=== PATIENT | female | born 2005 | race Caucasian/White ===

== ENCOUNTER 2023-04-25 07:04 | Outpatient (CLI) | payer BC, SELFPAY ==
--- NOTE | 2023-04-25 07:15 | CRLHL7_ITS ---
For Patients: As a result of the Cures Act, medical imaging exams and procedure reports are released immediately into your electronic medical record. You may view this report before your referring provider. If you have questions, please contact your health care provider. INDICATION: First trimester scan, establish dates. COMPARISON: None. TECHNIQUE: Real-time burgos-scale imaging of the pelvis was performed. FINDINGS: Sonographic imaging demonstrates a single living intrauterine gestation. The embryo demonstrates a regular cardiac rate measuring 143 beats per minute. The embryo`s crown-rump length measurement of 0.9 cm corresponds to a gestational age of 6 weeks 6 days with a sonographic due date of 12/13/2023. There is a normal-appearing yolk sac. There are no gross abnormalities noted within the embryo at this early state of development. The gestational sac has a normal appearance. There is no evidence of a perigestational hemorrhage. The amount of fluid within the sac appears appropriate for gestational age. The cervix is closed. The myometrium appears normal. The ovaries are of normal size. Corpus luteal cyst left ovary. There are no suspicious fluid collections noted in the cul-de-sac. IMPRESSION: Normal first trimester OB ultrasound exam. Gestational age calculated at 6 weeks 6 days with a sonographic due date of 12/13/2023. Dictated by Tony Solorzano MD @ 04/25/2023 10:07:49 AM (Electronically Signed)
== END 2023-04-25 07:05 | disposition home or self-care (01) ==
LOC: US 07:05
PROVIDERS: PCP Family Medicine; Visit Provider Advanced Practice Midwife
DX: Z34.91 Encounter for supervision of normal pregnancy, unspecified, first trimester (principal); Z3A.01 Less than 8 weeks gestation of pregnancy
CPT/HCPCS: 76817; 86703; 86706; 86803; 86850; 86900; 86901; 87086; 87340

== ENCOUNTER 2023-04-25 09:11 | Outpatient (CLI) | payer BC, SELFPAY | END 2023-04-25 09:12 | disposition home or self-care (01) | PROVIDERS: PCP Family Medicine; Visit Provider Advanced Practice Midwife | DX: Z34.91 Encounter for supervision of normal pregnancy, unspecified, first trimester (principal); Z3A.01 Less than 8 weeks gestation of pregnancy | CPT/HCPCS: 86592; 86703; 86704; 86706; 86762; 86787; 86803; 86850; 86900; 86901; 87086; 87340 ==

== ENCOUNTER 2023-05-18 08:34 | Outpatient (CLI) | payer BC, SELFPAY | END 2023-05-18 08:35 | disposition home or self-care (01) | LOC: NFLDREF 08:36 | PROVIDERS: PCP Family Medicine; Visit Provider Advanced Practice Midwife | DX: Z34.91 Encounter for supervision of normal pregnancy, unspecified, first trimester (principal) | CPT/HCPCS: 87086 ==

== ENCOUNTER 2023-06-20 13:00 | Outpatient (RCR) | payer BC, SELFPAY | END 2023-10-18 23:59 | disposition home or self-care (01) | PROVIDERS: Visit Provider Family Medicine | DX: M51.27 Other intervertebral disc displacement, lumbosacral region (principal); N39.3 Stress incontinence (female) (male); M62.81 Muscle weakness (generalized); Z51.89 Encounter for other specified aftercare | CPT/HCPCS: 97110; 97140; 97162 ==

== ENCOUNTER 2023-07-25 07:08 | Outpatient (CLI) | payer BC, SELFPAY ==
--- NOTE | 2023-07-25 07:15 | CRLHL7_ITS ---
For Patients: As a result of the Century Cures Act, medical imaging exams and procedure reports are released immediately into your electronic medical record. You may view this report before your referring provider. If you have questions, please contact your health care provider. INDICATION: Evaluate anatomy. COMPARISON: 04/25/2023 TECHNIQUE: Real time burgos scale imaging of the fetus was performed as well as color Doppler analysis of the umbilical vessels. FINDINGS: Sonographic imaging demonstrates a single living intrauterine gestation. Fetus demonstrates a regular cardiac rate of 147 beats per minute. Fetus has a variable position. The placenta lies anteriorly without evidence of placenta previa. The placenta is located 5.4 cm from the internal cervical os. Amniotic fluid volume appears normal. Single deepest vertical pocket: 6.0 cm. The cervix is closed and measures 3.1 cm in length. The composite ultrasound gestational age is calculated at 21 weeks 0 days with an estimated sonographic due date of 12/05/2023. The estimated weight is 401 grams which lies at the 88th %. The following biometric measurements were obtained: Biparietal diameter: 4.9 cm/20 weeks 5 days 68th% Head circumference: 18.6 cm/21 weeks 0 days 73rd% Abdominal circumference: 16.7 cm/21 weeks 5 days 87th% Femur length: 3.3 cm/20 weeks 3 days 47th% The HC/AC ratio measures: 1.11 range (1.06-1.25) On anatomic survey, there is a normal appearance of the cerebral ventricles, cavum septi pellucidi, cisterna magna and cerebellum. The nose, lips, and facial profile appear normal. The cervical, thoracic and lumbar spine are well visualized and appear normal. There is a normal four-chamber heart view and the left and right ventricular outflow tracts appear normal. The diaphragm and stomach appear normal. The kidneys and bladder also appear normal. There is a normal three-vessel cord and cord insertion site. The four extremities appear normal. IMPRESSION: Normal OB ultrasound exam with concordance of clinical and sonographic dating. No intrinsic abnormalities noted on anatomic survey. Dictated by Tony Solorzano MD @ 07/25/2023 10:36:59 AM (Electronically Signed)
== END 2023-07-25 07:09 | disposition home or self-care (01) ==
LOC: US 07:08
PROVIDERS: PCP Family Medicine; Visit Provider Advanced Practice Midwife
DX: Z34.92 Encounter for supervision of normal pregnancy, unspecified, second trimester (principal); Z3A.21 21 weeks gestation of pregnancy
CPT/HCPCS: 76805

== ENCOUNTER 2023-08-23 09:54 | Outpatient (CLI) | payer OTHER, SELFPAY | END 2023-08-23 09:55 | disposition home or self-care (01) | LOC: NFLDREF 08-24 11:18 | PROVIDERS: PCP Family Medicine; Referring Provider Family Medicine; Visit Provider Advanced Practice Midwife | DX: Z34.02 Encounter for supervision of normal first pregnancy, second trimester (principal); Z3A.24 24 weeks gestation of pregnancy | CPT/HCPCS: 82728 ==

== ENCOUNTER 2023-09-06 12:30 | Emergency (ER) | payer OTHER, SELFPAY ==
[2023-09-06] VITALS (9 sets, daily range): BP systolic 111–116; BP diastolic 67–74; PULSE 92–113; RESP 17–20; TEMP 36.4; O2SAT 97–100; BMI 21.3
[2023-09-06 13:26] LABS: Basophils Absolute Auto 0.03 K/uL (0.00-0.30); Basophils Percent Auto 0.3 % (0.0-3.0); Eosinophils Absolute Auto 0.25 K/uL (0.00-0.50); Eosinophils Percent Auto 2.5 % (0.0-7.0); Hematocrit 33.5 % (33.0-51.0); Immature Granulocytes Abs Auto 0.06 K/uL (0.00-0.30); Immature Granulocytes Pct Auto 0.6 %; Lymphocytes Percent Auto 16.9 % (20-44); Mean Corpuscular HGB Conc 33 gm/dL (32-36); Mean Corpuscular Hemoglobin 31 pg (26-34); Mean Corpuscular Volume 94 fL (80-100); Monocytes Percent Auto 7.4 % (0.0-11.0); Neutrophils Percent Auto 72.3 % (42.0-72.0); Platelet Count* 219 K/uL (140-440); Red Blood Count 3.58 m/uL (4.00-5.20); White Blood Count* 9.93 K/uL (4.50-11.00)
[2023-09-06 13:53] LABS: Slide Review Reflex Yes
[2023-09-06 13:55] LABS: Slide Review Acceptable Review (Acceptable)
--- NOTE | 2023-09-06 13:55 | ED.GENADULT ---
HPI - General Adult General Chief complaint: Chest Pain Stated complaint: 26 weeks --chest pain, racing heartrate Time Seen by Provider: 09/06/23 12:33 History of Present Illness HPI narrative: This 18-year-old female is 26 weeks with her 1st . She comes in reporting increased heart rate. She arrives with resting heart rate at around 110-120 beats per minute. There are times she reports where her heart rate increases up to around 160 beats per minute with associated lightheadedness. She states that this normally occurs when she is in a standing position at times. She gets relief when lying down. Her has been uneventful otherwise. She is otherwise in good health and has no previous history of blood clot. She does have some mild anemia a typical in . She did go to a clinic appointment and was given iron thinking that her hemoglobin may be causing these symptoms. She did not get any relief from this. Her hemoglobin is around 10 which is not atypical in . Related Data Home Medications Medication Instructions Recorded Confirmed vits no.126-ferrous fum 2 tab PO DAILY 04/25/23 09/06/23 28 mg iron-folic acid 800 mcg tablet (Classic ) ascorbic acid (vitamin C) 500 mg 500 mg PO DAILY 07/25/23 09/06/23 capsule cholecalciferol (vitamin D3) 10 50 mcg PO QDAY 08/23/23 09/06/23 mcg (400 unit) capsule ferrous sulfate 137 mg (45 mg mg PO 08/23/23 08/23/23 iron) tablet,extended release Previous Rx's Medication Instructions Recorded folic acid 1 mg tablet 4 mg (4 x 1 mg) PO QDAY #120 tabs 04/25/23 Allergies Allergy/AdvReac Type Severity Reaction Status Date / Time No Known Drug Allergies Allergy Verified 09/06/23 12:37 Review of Systems Narrative: Constitutional: No fevers, no weight gain or loss. Eyes: No discharge. No vision changes. HENT: No congestion, no sore throat, no ear pain. Cardiovascular: No chest pain, no palpitations. Respiratory: No wheezes, no cough. Gastrointestinal: No abdominal pain, no vomiting, no diarrhea. Genitourinary: No dysuria, no hematuria. Musculoskeletal: Normal range of motion. Skin: No rashes, no pruritis. Neurological: No weakness, sensory change, speech change. Endo/Heme/Allergies: No bruising or bleeding. No polydipsia. Pysch: no suicidality, no anxiety, no insomnia. All other systems reviewed and are negative. PFSH PFSH Medical History (Updated 09/06/23 @ 15:24 by Parker Arias MD) Hx of scoliosis ?Z87.39 - Personal history of other diseases of the musculoskeletal system and connective tissue (ICD-10) Depression ?F32.A - Depression, unspecified (ICD-10) Surgical History (Updated 04/25/23 @ 08:49 by Julienne Fields CNM) [place] teeth extracted ?K08.409 - Partial loss of teeth, unspecified cause, unspecified class (ICD-10) Family History (Updated 04/25/23 @ 11:04 by Julienne Fields CNM) Mother Skin cancer (melanoma) Breast cancer Father Folic acid deficiency disease Social History (Updated 04/25/23 @ 10:38 by Julienne Fields CNM) Narrative: SOCIAL? ? Education: high school? ? 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 ? Partner: Jefferson, , works as a welder/installer? ? Lives with: Jefferson? ? Pets: 2 dogs? ? Abuse: Denies past Safe at home with current partner, partner was present when asked? ? Special Diet: Denies? ? Ok with a blood transfusion: yes? ? Culture or jain beliefs: denies? What is your current living situation?: I presently have a place to live Problems where you live: no known problems In the past 12 months, utilities in danger of being shut off: no In past 12 months, lack of transportation kept you from medical appts, meetings, work, or getting things needed for daily living: no In the past 12 mos, have been you worried that your food would run out before you had money to buy more?: never true In the past 12 mos, the food you bought just didn't last and you didn't have money to buy more?: never true Smoking Status: Never smoker Do you use any of these nicotine containing products: None Second hand tobacco smoke exposure: No How often do you have a drink containing alcohol: never AUDIT-C Alcohol total score: 0 Non-prescribed substance use: denies use How often does anyone, including family, friends and others, physically hurt you: never How often does anyone, including family, friends and others, insult or talk down to you: never How often does anyone, including family, friends and others, threaten you with harm: never How often does anyone, including family, friends and others, scream or curse at you: never Little interest or pleasure in doing things: not at all Feeling down, depressed, or hopeless: not at all Exam Narrative: Exam Narrative: Constitutional: Well-developed, well-nourished, no acute distress. HEENT: Normocephalic, atraumatic. Neck: Normal range of motion. Nontender. Supple. Heart: Regular. No murmurs. Borderline tachycardia. Intact distal pulses. Lungs: Clear to auscultation. No chest discomfort. No wheezes, rhonchi, or rales. Abdomen: Normal bowel sounds. Nontender. No rebound tenderness. Genitalia: Deferred. Back: No midline tenderness. Normal range of motion. Extremities: Normal range of motion. No injury. Skin: Intact. No rash. Warm. No erythema or pallor. Neurologic: No altered sensation. No weakness. Alert and oriented. Psychiatric: No suicidality. No anxiety or depression. No insomnia. Nursing notes and vitals signs are reviewed. Const: Vital Signs, click to edit/add: Vital Signs - 24 hr 09/06/23 12:38 09/06/23 14:23 09/06/23 14:34 Temperature 97.6 F Pulse Rate 102 H 98 Pulse Rate [Pulse Oximeter] 113 H Respiratory Rate 20 Blood Pressure Blood Pressure [Ri ght Upper Arm] 115/74 Pulse Oximetry 100 98 98 Oxygen Delivery Me thod Room Air 09/06/23 14:35 09/06/23 14:45 Temperature Pulse Rate 94 95 Pulse Rate [Pulse Oximeter] Respiratory Rate Blood Pressure 116/67 Blood Pressure [Ri ght Upper Arm] Pulse Oximetry 97 97 Oxygen Delivery Me thod Course Vital Signs Vital signs: Initial Vital Signs Temperature 97.6 F 09/06/23 12:38 Temperature Source Temporal Artery Scan 09/06/23 12:38 Pulse Rate 113 H 09/06/23 12:38 Respiratory Rate 20 09/06/23 12:38 Blood Pressure 115/74 09/06/23 12:38 Blood Pressure Mean 87 09/06/23 12:38 Blood Pressure Position Sitting 09/06/23 12:38 Pulse Oximetry 100 09/06/23 12:38 Oxygen Delivery Method Room Air 09/06/23 12:38 Vital Signs Temperature 97.6 F 09/06/23 12:38 Pulse Rate 113 H 09/06/23 12:38 Respiratory Rate 20 09/06/23 12:38 Blood Pressure 115/74 09/06/23 12:38 Pulse Oximetry 100 09/06/23 12:38 Oxygen Delivery Method Room Air 09/06/23 12:38 Temperature 97.6 F 09/06/23 12:38 Pulse Rate 95 09/06/23 14:45 Respiratory Rate 20 09/06/23 12:38 Blood Pressure 116/67 09/06/23 14:35 Pulse Oximetry 97 09/06/23 14:45 Oxygen Delivery Method Room Air 09/06/23 12:38 Medical Decision Making MDM Narrative Medical decision making narrative: This patient comes in with concern about episodes of increased heart rate. She states that she noticed an episode when in a standing position when her heart rate went up toward 160 beats per minute. She arrives here with heart rate around 110 but this decreased into the 90s when relaxing here. She does not report any leg pain and has no prior history of blood clots. She states that she has been having increased heart rate over the past many weeks during this . She has had a mild anemia and did receive iron therapy. Today her hemoglobin returns at 11.0. A D-dimer is obtained which can be altered in its results during the course of . Hers returns at 0.57 which is in normal range for 2nd trimester . Up-to-date states D-dimer can range between 0.2 and 1.6 at this time in . I did use bedside ultrasound to evaluate her and saw normal heart beat and general activity of the baby. Other organs are visualized including kidneys, liver, gallbladder, aorta, and inferior vena cava. I also evaluated her heart and saw normal heart rate and rhythm without evidence of any right heart enlargement, fluid around the heart, or valvular dysfunction. It seems that this patient has episodes of tachycardia are not related to a deep venous thrombus or pulmonary embolism. It does seem to be more related to position and with her increasing sizes there could be some episodes of compression of blood flow returned back to her heart causing these reactions. This patient is okay to be discharged home. Lab Data Labs: Lab Results 09/06/23 Range/Units 13:18 WBC 9.93 (4.50-11.00) K/uL RBC 3.58 L (4.00-5.20) m/uL Hgb 11.0 L (12.0-16.0) gm/dL Hct 33.5 (33.0-51.0) % MCV 94 (80-100) fL MCH 31 (26-34) pg MCHC 33 (32-36) gm/dL RDW Coeff of [place] 13.0 (11.5-15.5) % Plt Count 219 (140-440) K/uL Neut % (Auto) 72.3 H (42.0-72.0) % Lymph % (Auto) 16.9 L (20-44) % [place] % (Auto) 7.4 (0.0-11.0) % Eos % (Auto) 2.5 (0.0-7.0) % Baso % (Auto) 0.3 (0.0-3.0) % Neut # (Auto) 7.20 H (1.7-7.0) K/uL Lymph # (Auto) 1.70 (0.90-2.90) K/uL [place] # (Auto) 0.70 (0.00-0.90) K/UL Eos # (Auto) 0.25 (0.00-0.50) K/uL Baso # (Auto) 0.03 (0.00-0.30) K/uL Abs Immat Gran (auto) 0.06 (0.00-0.30) K/uL Imm/Tot Granulo (auto) 0.6 % Diff Slide Review Acceptable Review (Acceptable) D-Dimer Quant (PE/DVT) 0.57 H (0.00-0.50) ug/ml ECG Data Interpretation: Normal sinus rhythm. Rate is 100 beats per minute. There are no ST or T-wave abnormalities. Discharge Plan Discharge Clinical Impression: , Tachycardia, paroxysmal Patient Disposition: Home, Self-Care Condition: Stable Additional Instructions: Continue current plans. Follow up with MD return if worsening. Prescriptions: No Action ascorbic acid (vitamin C) 500 mg capsule 500 mg PO DAILY cholecalciferol (vitamin D3) 10 mcg (400 unit) capsule 50 mcg PO QDAY Classic 28 mg iron- 800 mcg tablet 2 tab PO DAILY folic acid 1 mg tablet 4 mg PO QDAY Qty: 120 12RF ferrous sulfate 137 mg (45 mg iron) tablet extended release PO Hold Instructions: during IV iron infusions Follow Up/Referrals: Alcira Arreola MD [Primary Care Provider] - Stand Alone Forms: [facility] Info Instructions Procedures Ultrasound Cardiac exam #1: Anatomical areas examined: parasternal long Indications: dyspnea Exam type: limited transthoracic echocardiogram Impression: negative exam
[2023-09-06 15:48] LABS: D Dimer Quantitative* 0.57 ug/ml (0.00-0.50)
== END 2023-09-06 15:34 | disposition home or self-care (01) ==
PROVIDERS: Emergency Provider Emergency Medicine Emergency Medical Services; PCP Family Medicine
DX: O99.412 Diseases of the circulatory system complicating pregnancy, second trimester (principal); I47.9 Paroxysmal tachycardia, unspecified; Z3A.26 26 weeks gestation of pregnancy
CPT/HCPCS: 36415; 76604; 76705; 85025; 85379; 93005; 93308; 99284; 99285

== ENCOUNTER 2023-09-07 11:08 | Outpatient (CLI) | payer OTHER, SELFPAY | END 2023-09-07 11:09 | disposition home or self-care (01) | LOC: NFLDREF 11:21 | PROVIDERS: PCP Family Medicine; Visit Provider Advanced Practice Midwife | DX: Z34.92 Encounter for supervision of normal pregnancy, unspecified, second trimester (principal); Z3A.26 26 weeks gestation of pregnancy | CPT/HCPCS: 80053 ==

== ENCOUNTER 2023-09-07 13:00 | Outpatient (RCR) | payer OTHER, SELFPAY ==
[2023-08-29 09:09] VITALS: BP 121/75; PULSE 104; RESP 16; TEMP 36.3
[2023-08-29] MEDS: 0.9 % SODIUM CHLORIDE 250 ml IV (09:15)
[2023-08-29] MEDS: SODIUM CHLORIDE 0.9 % (FLUSH) 10 ML SYRINGE IVF (09:15)
[2023-08-29] MEDS: IRON SUCROSE COMPLEX 200 MG in 0.9 % SODIUM CHLORIDE 100 ml 440 MG IVPB (09:26)
[2023-08-29 09:47] VITALS: BP 107/79; PULSE 94
[2023-08-29 10:15] VITALS: BP 109/67; PULSE 97; RESP 16; TEMP 35.9; O2SAT 98
--- NOTE | 2023-08-29 11:26 | URNOTE ---
Per UMR, prior authorization is not required for Iron sucrose ([id number]).
[2023-08-31 10:06] VITALS: BP 130/71; PULSE 105; RESP 16; TEMP 36.3; O2SAT 99
[2023-08-31] MEDS: SODIUM CHLORIDE 0.9 % (FLUSH) 10 ML SYRINGE IVF (10:23)
[2023-08-31] MEDS: IRON SUCROSE COMPLEX 200 MG in 0.9 % SODIUM CHLORIDE 100 ml 440 MG IVPB (10:23)
[2023-08-31] MEDS: 0.9 % SODIUM CHLORIDE 250 ml IV (10:23)
--- NOTE | 2023-08-31 10:29 | PC.NURSE ---
Pt present at [facility] for 2nd Venofer infusion. Celine reports that after last treatment (1st infusion) she experienced dizziness, hot flashes and heart racing (130 bpm per pt's manual assessment) a few hours after the completion of the infusion. The next day she had a headache and joint pain all day. RN advised pt to contact her OB provider with this update.
[2023-08-31 10:44] VITALS: BP 110/69; PULSE 91; RESP 16; TEMP 36.9; O2SAT 98
[2023-08-31 11:18] VITALS: BP 117/73; PULSE 88; RESP 16; TEMP 37.2; O2SAT 98
[2023-09-03 14:03] VITALS: BP 129/81; PULSE 107; RESP 16; TEMP 36; O2SAT 100
[2023-09-03] MEDS: IRON SUCROSE COMPLEX 200 MG in 0.9 % SODIUM CHLORIDE 100 ml 440 MG IVPB (14:28)
[2023-09-03 14:50] VITALS: BP 103/55; PULSE 98; RESP 16; TEMP 36.3; O2SAT 98
[2023-09-03 15:20] VITALS: BP 110/71; PULSE 100; RESP 16; TEMP 36.7; O2SAT 99
[2023-09-05 08:30] VITALS: BP 108/62; PULSE 110; RESP 16; TEMP 35.8; O2SAT 99
[2023-09-05] MEDS: SODIUM CHLORIDE 0.9 % (FLUSH) 10 ML SYRINGE IVF (08:51)
[2023-09-05] MEDS: IRON SUCROSE COMPLEX 200 MG in 0.9 % SODIUM CHLORIDE 100 ml 440 MG IVPB (08:51)
[2023-09-05] MEDS: 0.9 % SODIUM CHLORIDE 250 ml IV (08:51)
[2023-09-05 09:33] VITALS: BP 114/70; PULSE 110; RESP 16; TEMP 36.6; O2SAT 99
[2023-09-07 12:58] VITALS: BP 120/76; PULSE 106; RESP 18; O2SAT 98
[2023-09-07] MEDS: IRON SUCROSE COMPLEX 200 MG in 0.9 % SODIUM CHLORIDE 100 ml 440 MG IVPB (13:11)
[2023-09-07 13:28] VITALS: BP 103/69; PULSE 106; RESP 16; O2SAT 98
[2023-09-07] MEDS: SODIUM CHLORIDE 0.9 % (FLUSH) 10 ML SYRINGE IVF (13:28)
[2023-09-07] MEDS: 0.9 % SODIUM CHLORIDE 250 ml IV (13:28)
[2023-09-07 14:01] VITALS: BP 106/72; PULSE 110; RESP 18; O2SAT 98
== END 2024-02-25 23:59 | disposition home or self-care (01) ==
LOC: CCIC 13:00
PROVIDERS: PCP Family Medicine; Referring Provider Family Medicine; Visit Provider Advanced Practice Midwife
DX: D50.9 Iron deficiency anemia, unspecified (principal)
CPT/HCPCS: 96365; 96374; 96376; J1756; J7050

== ENCOUNTER 2023-09-19 12:47 | Outpatient (CLI) | payer OTHER, SELFPAY | END 2023-09-19 12:48 | disposition home or self-care (01) | LOC: RAD 12:48 | PROVIDERS: PCP Family Medicine; Visit Provider Internal Medicine | DX: I47.9 Paroxysmal tachycardia, unspecified (principal) | CPT/HCPCS: 93306 ==

== ENCOUNTER 2023-09-20 09:29 | Outpatient (CLI) | payer OTHER, SELFPAY | END 2023-09-20 09:30 | disposition home or self-care (01) | LOC: NFLDREF 10-02 19:58 | PROVIDERS: PCP Family Medicine; Referring Provider Family Medicine; Visit Provider Advanced Practice Midwife | DX: R74.8 Abnormal levels of other serum enzymes (principal); Z11.3 Encounter for screening for infections with a predominantly sexual mode of transmission | CPT/HCPCS: 84450; 84460; 86592 ==

== ENCOUNTER 2023-11-13 18:09 | Outpatient (CLI) | payer OTHER, SELFPAY ==
[2023-11-13 18:17] VITALS: PULSE 105; O2SAT 100
[2023-11-13 18:18] VITALS: BP 129/75; PULSE 100; RESP 16; TEMP 36.7
--- NOTE | 2023-11-13 19:07 | PC.OBNST ---
The provider's electronic signature indicates the NST is reactive/appropriate for gestational age. *Note to provider: If an addendum is required, open the patient's chart and click on the note under the Nurse/Allied Health tab.
== END 2023-11-13 18:48 | disposition home or self-care (01) ==
LOC: OB OUT 18:09 → OB 18:10
PROVIDERS: PCP Family Medicine; Visit Provider Advanced Practice Midwife
DX: O36.8130 Decreased fetal movements, third trimester, not applicable or unspecified (principal); Z3A.36 36 weeks gestation of pregnancy
CPT/HCPCS: 59025; G0463

== ENCOUNTER 2023-11-15 11:00 | Outpatient (CLI) | payer OTHER, SELFPAY | END 2023-11-15 11:01 | disposition home or self-care (01) | LOC: NFLDREF 11-19 07:50 | PROVIDERS: PCP Family Medicine; Referring Provider Family Medicine; Visit Provider Advanced Practice Midwife | DX: Z34.03 Encounter for supervision of normal first pregnancy, third trimester (principal) | CPT/HCPCS: 87081; 87653 ==

== ENCOUNTER 2023-11-22 10:26 | Outpatient (CLI) | payer OTHER, SELFPAY ==
--- NOTE | 2023-11-22 10:30 | US_ITS ---
Patient: GABRIEL ESCAMILLA Facility:?[facility] Patient ID:?[id number] Site Patient ID:?[id number]. Site :?[id number] Study:?US-OB Pelvis BPP-11/22/2023 10:59:14 AM Ordering Physician:DEEPALI REY Final Report: INDICATION: Decreased movement TECHNIQUE: Limited transabdominal two-dimensional burgos-scale ultrasound examination. COMPARISON: None FINDINGS: There is a living fetus in cephalic lie with gestational age of 37 weeks 3 days and EDC of 12/10/2023. The biophysical profile score is 8/8. The heart rate is measured at 147 beats per minute and the rhythm appears regular. The amniotic fluid volume is within normal limits with single deepest pocket of 4.6 cm. The placenta is anterior and superior to the cervical os. There is no evidence of previa. IMPRESSION: 1. Living fetus in cephalic lie with gestational age of 37 weeks 3 days and EDC of 12/10/2023. 2. Biophysical profile score is 8/8. Dictated by Herbert Piedra MD @ 11/23/2023 9:50:42 AM Signed by:?Herbert Piedra MD @11/23/2023 9:50:42 AM (Electronic Signature)
== END 2023-11-22 10:27 | disposition home or self-care (01) ==
LOC: US 10:26
PROVIDERS: PCP Family Medicine; Visit Provider Advanced Practice Midwife
DX: O36.8130 Decreased fetal movements, third trimester, not applicable or unspecified (principal); Z3A.37 37 weeks gestation of pregnancy
CPT/HCPCS: 76819

== ENCOUNTER 2023-11-22 11:01 | Outpatient (CLI) | payer OTHER, SELFPAY | END 2023-11-22 11:02 | disposition home or self-care (01) | PROVIDERS: PCP Family Medicine; Visit Provider Advanced Practice Midwife | DX: O99.713 Diseases of the skin and subcutaneous tissue complicating pregnancy, third trimester (principal); L29.9 Pruritus, unspecified | CPT/HCPCS: 82239; 84450; 84460 ==

== ENCOUNTER 2023-12-01 16:34 | Outpatient (CLI) | payer OTHER, SELFPAY ==
[2023-12-01 16:57] VITALS: BP 132/73; PULSE 100; TEMP 36.6
[2023-12-01 17:21] LABS: Appearance Urine Clear (Clear); Bilirubin Urine Negative (Negative); Blood Urine Negative (Negative); Color Urine Light yellow (Yellow); Glucose Urine Negative (Negative); Ketones Urine Negative (Negative); Leukocyte Esterase Urine Negative (Negative); Nitrite Urine Negative (Negative); Protein Urine Negative (Negative); Specific Gravity Urine 1.015 (1.000-1.030); Urobilinogen Urine 0.2 (0.2-1.0); pH Urine 7.5 (5.0-8.5)
--- NOTE | 2023-12-02 21:43 | PC.OBNST ---
NST Note NST Note Start: 12/01/23 16:45 Freq: ONCE Status: Discharge Protocol: Document 12/01/23 19:28 ABP (Rec: 12/01/23 19:30 ABP [id number]) NST Note 1 Para (# of births) 0 EDC 12/10/23 Gestational Age In Weeks & Days 38 Weeks & 5 Days Patient Presented with Complaint(s) of Contractions/cramping Reactive Yes LUCIANO Bal RN Date 12/01/23 Reactive Yes LUCIANO Macias RN OB NST charge Yes Complete NST Note via Write Note Yes The provider's electronic signature indicates the NST is reactive/appropriate for gestational age. *Note to provider: If an addendum is required, open the patient's chart and click on the note under the Nurse/Allied Health tab.
== END 2023-12-01 19:35 | disposition home or self-care (01) ==
LOC: OB OUT 16:35 → OB 16:36
PROVIDERS: PCP Family Medicine; Visit Provider Advanced Practice Midwife
DX: O47.1 False labor at or after 37 completed weeks of gestation (principal); Z3A.38 38 weeks gestation of pregnancy
CPT/HCPCS: 59025; 81003; G0463

== ENCOUNTER 2023-12-11 12:12 | Inpatient (IN) | payer OTHER, SELFPAY ==
[2023-12-11] VITALS (17 sets, daily range): BP systolic 104–135; BP diastolic 56–79; PULSE 82–141; RESP 16; TEMP 36.6–37.1; O2SAT 98–100; BMI 25.4
[2023-12-11 11:35] LABS: Hematocrit 37.2 % (33.0-51.0); Hemoglobin* 12.6 gm/dL (12.0-16.0); Mean Corpuscular HGB Conc 34 gm/dL (32-36); Mean Corpuscular Hemoglobin 31 pg (26-34); Mean Corpuscular Volume 92 fL (80-100); Platelet Count* 188 K/uL (140-440); Red Blood Count 4.04 m/uL (4.00-5.20)
[2023-12-11 11:43] LABS: Slide Review Reflex No
[2023-12-11 11:55] LABS: Alanine Aminotransferase* 13 U/L (4-35); Aspartate Amino Transferase* 24 U/L (12-35); Blood Urea Nitrogen* 4 mg/dL (5-24); Creatinine* 0.4 mg/dL (0.5-1.5); Estimated Glomerular Filt Rate 145 ml/min
[2023-12-11 11:55] LABS: Total Protein Urine 13 mg/dL
[2023-12-11 11:56] LABS: Creatinine Urine 12.6 mg/dL
--- NOTE | 2023-12-11 12:10 | P.LDBA_ITS ---
Subjective History of Present Illness Date Seen: 12/11/23 Narrative: Patient is being admitted to Labor and Delivery for induction of labor for preeclampsia without severe features. She is a 18 year old at 40.1 weeks gestation. Her full history and physical was dictated by Cuate Fields CNM on 11/22/23. Please see this for details. She was seen in the clinic today for a routine OB visit, and had elevated blood pressures there. She was sent to triage for further monitoring and lab work. Her blood pressures are now within normal limits running 120's/80's. Labs are WNL with the exception of her TP creatinine ratio which is 1.00 today. Recommendation with the diagnosis of preeclampsia at 40.1 weeks is induction of labor. Specific Issues/Plans [place] H&P done by Cuate Fields CNM on 11/22/23 1. Father of pt has MTHFR genetic mutation -folic acid 4mg RX sent 2. Hx anemia -recommended iron supplement QOD Hgb 10.5 at 24 weeks with symptoms IV iron infusions ordered 3. depression and anxiety -previously took medication, off for the last 2 years. 4. Hx of scoliosis, incidental herniated disc noted on MRI L5-S1 disk extrusion with 3 mm migration (per [facility] records) Starting PT end of April/early May -Consider anesthesia referral: completed, no concerns 5. Paroxysmal Tachycardia with SOB Normal Troponin & CBC, elevated AST (39) ALT (40) Follow-up AST and ALT in 1 week- all normal Holter monitor Cardiology Consult: occasional benign sinus tach, can consider labetalol is symptomatic/bothersome 6. Itching on abdomen at 37 wks- labs normal 40 wks return of itching- repeat labs 7. Elevated BP in clinic 40 weeks COVID: fully vaccinated, boosted x1 Flu: 05/22/2023 TDAP: 10/26/2023 32wk Mental Health: 34wk Hgb: Comments: ? OB - Problem Based A/P Additional Plan (1) Preeclampsia: Status: Acute (2) 40 weeks gestation of : Status: Acute (3) Encounter for induction of labor: Status: Acute Plan Assessment:?? at 40.1 weeks gestation?? GBS negative?? Labor type: Induced, Early labor? Category 1 FHR pattern. Morton score 6. complicated by: 1. Father of pt has MTHFR genetic mutation -folic acid 4mg RX sent 2. Hx anemia -recommended iron supplement QOD Hgb 10.5 at 24 weeks with symptoms IV iron infusions ordered 3. depression and anxiety -previously took medication, off for the last 2 years. 4. Hx of scoliosis, incidental herniated disc noted on MRI L5-S1 disk extrusion with 3 mm migration (per [facility] records) -Consider anesthesia referral: completed, no concerns 5. Paroxysmal Tachycardia with SOB Normal Troponin & CBC, elevated AST (39) ALT (40) Follow-up AST and ALT in 1 week- all normal Holter monitor Cardiology Consult: occasional benign sinus tach, can consider labetalol is symptomatic/bothersome 6. Itching on abdomen at 37 wks- labs normal 40 wks return of itching- repeat labs ordered 12/11/23 7. Preeclampsia without severe features Plan:?? * ?Admit to L & D? * IV access: SL for induction * Monitoring per policy: continuous ? * Candidate for analgesia of choice.? Planning unmedicated waterbirth for pain management * Desires waterbirth.? Consent signed and Hep C negative * Reviewed risks and benefits of IOL with Cook balloon, pitocin vs cytotec/cervadil. Pt prefers cytotec. Pitocin to follow if needed. * Monitor blood pressures. Repeat labs if worsening symptoms or more elevated BP's ? * Patient encouraged to reposition and ambulate to promote physiologic labor and . * Anticipate ? Delivery/Labor/Induction Plan Plan: induction Induction method: per misoprostol protocol OB Exam Physical Exam Vital signs: Temp Pulse BP Pulse Ox 98 F 96 121/66 99 12/11/23 11:15 12/11/23 11:46 12/11/23 11:46 12/11/23 11:16 Narrative: Vitals Reviewed Constitutional:? Alert and oriented x3 HEENT:? Normocephalic, atraumatic Neck:? Supple Lungs:? Clear to auscultation bilaterally Heart:? Regular rate and rhythm, no murmur, rub or gallop Abdomen:? Soft, nontender, and gravid. Vertex by Js's, confirmed with cervical exam. Extremities:? No edema or erythema Cervix: 1.5 cm/50%/0 station/vertex NST: 135 bpm/moderate variability/+accelerations/-decelerations/rare contractions Detailed Labor and Delivery Exam Patient Gravid: Yes
[2023-12-11] MEDS: miSOPROStoL 25 MCG/0.25 TABLET VAGINAL (12:46)
--- NOTE | 2023-12-11 16:12 | PM.OBPNL ---
Subjective Date Seen: 12/11/23 Narrative: ?Celine is coping well with labor pain/contractions. ?Her is with her for support. She denies strong contractions at this time, reports only slight increase in cramping since receiving Cytotec. ?She would like to continue with repositioning and relaxation for comfort and pain management.? Objective Exam: VSS, afebrile General Appearance:? Calm, cooperative. ?No acute distress. ? Psychiatric Exam: Alert and oriented, appropriate affect Abdomen: Gravid Ctx: ?Q 1-4 min apart. ?Mild ? ? FHTs: ?Baseline: 140. ? ? Variability: moderate. ?Accels: +. ? ?Decels: ?-. SVE: deferred at this time Membranes: Intact ? Vital Signs: Last Vital Signs Temp 98.7 F 12/11/23 13:38 Pulse 91 12/11/23 13:38 BP 132/73 12/11/23 13:38 Pulse Ox 99 12/11/23 13:37 Plan Plan: Assessment:?? at 40.1 gestation?? GBS negative Patient is coping well with challenges of labor.?? Labor type: Induced, Early labor? Category 1 FHR pattern.? complicated by: . Father of pt has MTHFR genetic mutation, Anemia with IV iron infusion in , Hx depression and anxiety not currently medicated, Hx of scoliosis, incidental herniated disc noted on MRI L5-S1 disk extrusion with 3 mm migration (per [facility] records) anesthesia referral: completed, no concerns Paroxysmal Tachycardia with SOB Normal Troponin & CBC, elevated AST (39) ALT (40) Follow-up AST and ALT in 1 week- all normal Holter monitor Cardiology Consult: occasional benign sinus tach, can consider labetalol is symptomatic/bothersome Itching on abdomen at 37 wks- labs normal 40 wks return of itching- repeat labs ordered 12/11/23 Labor complicated by: Proteinuria and elevated BP without the diagnosis of hypertension Plan:?? Induction ongoing for concerns of preeclampsia with new onset proteinuria and elevated BP in nonsevere ranges. Cytotec per protocol. Continue with routine intrapartum cares as ordered.?? Patient encouraged to move and change positions to promote physiologic labor and .?? Nonpharmacologic comfort measures per patient preference. Candidate for analgesia of choice if desired. Patient planning waterbirth Anticipate progress to NVD. ?
--- NOTE | 2023-12-11 18:07 | P.OBPN_ITS ---
Subjective Date Seen: 12/11/23 Narrative: ?Celine is coping well with labor pain/contractions. ?Her is with her for support. ?She would like to continue with repositioning and relaxation for comfort and pain management.?I was asked to evaluate her as she is more uncomfortable and katarina regularly. She is due for another dose of Cytotec now. Objective Exam: VSS, afebrile General Appearance:? Calm, cooperative. ?No acute distress. ? Psychiatric Exam: Alert and oriented, appropriate affect Abdomen: Gravid Ctx: ?Q 1-2 min apart. ? ? ?Moderate FHTs: ?Baseline: 135. ? ? Variability: moderate. ?Accels: +. ? ?Decels: ?-. SVE: /0 vertex Membranes: Intact ? Vital Signs: Last Vital Signs Temp 98.7 F 12/11/23 13:38 Pulse 85 12/11/23 17:33 BP 135/69 12/11/23 17:33 Pulse Ox 100 12/11/23 17:33 Plan Plan: Assessment:?? at 40.1 gestation?? GBS negative Patient is coping well with challenges of labor.?? Labor type: Induced, Early labor? Category 1 FHR pattern.? complicated by: . Father of pt has MTHFR genetic mutation, Anemia with IV iron infusion in , Hx depression and anxiety not currently medicated, Hx of scoliosis, incidental herniated disc noted on MRI L5-S1 disk extrusion with 3 mm migration (per [place] records) anesthesia referral: completed, no concerns Paroxysmal Tachycardia with SOB Normal Troponin & CBC, elevated AST (39) ALT (40) Follow-up AST and ALT in 1 week- all normal Holter monitor Cardiology Consult: occasional benign sinus tach, can consider labetalol is symptomatic/bothersome Itching on abdomen at 37 wks- labs normal 40 wks return of itching- repeat labs ordered 12/11/23 Labor complicated by: Proteinuria and elevated BP without the diagnosis of hypertension Plan:?? Induction ongoing for concerns of preeclampsia with new onset proteinuria and elevated BP in nonsevere ranges. Hold Cytotec at this time, consider addition of IV Pitocin if contractions space out. Continue with routine intrapartum cares as ordered.?? Patient encouraged to move and change positions to promote physiologic labor and .?? Nonpharmacologic comfort measures per patient preference. Candidate for analgesia of choice if desired. Patient planning waterbirth Anticipate progress to NVD. ?
--- NOTE | 2023-12-11 20:26 | P.OBPN_ITS ---
Subjective Date Seen: 12/11/23 Narrative: Celine is a 18 yo G1 at 40 1/7 weeks gestation admitted earlier today for protienuria with elevated BP not yet meeting criteria for hypertension disorder. She had an induction of labor started around 1 pm with cytotec. Since then she has been katarina about every 1-3 minutes. Further doses of cytotec were held. Patient reports feeling they are getting more intense but overall coping well. At this time, BP has been stable. Objective Exam: Objective: Constitutional: Alert and oriented x3, mild/moderate distress, coping well Vital signs stable, see nurse documentation Abdomen: gravid, contractions palpate mild/moderate with contractions and soft between Cervix: 3 cm/70%/0 station/vertex per previous exam at 1800 NST: 135 bpm/moderate variability/15x15 accelerations/no decelerations/cont ractions every 1-3 minutes Vital Signs: Last Vital Signs Temp 98.8 F 12/11/23 20:18 Pulse 113 H 12/11/23 20:14 Resp 16 12/11/23 20:18 BP 129/72 12/11/23 20:14 Pulse Ox 98 12/11/23 20:15 Contractions Monitor mode: External Contraction pattern: Regular Contraction intensity: Mild Assessment Assessment: induction ongoing and early labor Status: Category l Plan Plan: ASSESSMENT:? 18 at 40 1/7 weeks gestation? Labor type: induction, early labor? Category 1 FHR pattern.?? Labor complicated by: elevated p/c ratio with elevated BP not yet meeting criteria for HTN. ? GBS negative? ? PLAN:? Induction ongoing for concerns of preeclampsia with new onset proteinuria with one mild range blood pressure. Will continue to monitor BP. Hold Cytotec at this time, consider addition of IV Pitocin if contractions space out. Continue with routine intrapartum cares as ordered. Intermittent monitoring okay at this time to allow patient to move, portable monitor was not working and patient has not yet met criteria for Pre-e. If she has an additional elevated BP, she will need to have continuous BP monitoring. Patient encouraged to move and change positions to promote physiologic labor and .?? Nonpharmacologic comfort measures per patient preference. Candidate for analgesia of choice if desired. Patient planning waterbirth Anticipate progress to NVD
[2023-12-12] VITALS (80 sets, daily range): BP systolic 102–146; BP diastolic 51–89; PULSE 8–165; RESP 16–22; TEMP 35.9–37.1; O2SAT 82–100
[2023-12-12] MEDS: LACTATED RINGERS 1000 ML 1,000 ML 125 ML IV ×3 (00:47→15:32)
[2023-12-12] MEDS: OXYTOCIN 30 unit/500 ML in NS 30 UNIT/500 ML BAG IVPB (00:49)
--- NOTE | 2023-12-12 06:32 | PM.OBPNL ---
Subjective Date Seen: 12/12/23 Narrative: Celine is a G1 at 40 2/7 here for IOL for proteinuria with elevated BP x 1. She has not yet had another BP. She has been able to rest some overnight and coping well with labor pain. She reports that she is still having them but does not feel they are any more intense with pitocin. Objective Exam: Objective: Constitutional: Alert and oriented x3, mild/moderate distress, coping well Vital signs stable, see nurse documentation Abdomen: gravid, contractions palpate moderate with contractions and soft between Cervix: 4 cm/70%/0 station/vertex NST: 135 bpm/moderate variability/15x15 accelerations/no decelerations/contractions every 2-3 minutes Vital Signs: Last Vital Signs Temp 97.8 F 12/12/23 05:42 Pulse 82 12/12/23 05:53 Resp 16 12/12/23 05:42 BP 104/58 L 12/12/23 05:53 Pulse Ox 82 L 12/12/23 05:46 Contractions Monitor mode: External Contraction pattern: Regular Contraction intensity: Moderate Pitocin Rate (mU/min): 4 Assessment Assessment: induction ongoing and early labor Amniotic Membrane Status: AROM Status: Category l Plan Plan: ASSESSMENT:? 18 at 40 1/7 weeks gestation? Labor type: induction, early labor? Category 1 FHR pattern.?? Labor complicated by: elevated p/c ratio with elevated BP not yet meeting criteria for HTN. ? GBS negative? ? PLAN:? Induction ongoing for concerns of preeclampsia with new onset proteinuria with one mild range blood pressure. Will continue to monitor BP. IV pitocin started at 0030. Continue to titrate. Continue with routine intrapartum cares as ordered. Continuous EFM. Patient encouraged to move and change positions to promote physiologic labor and .?? Nonpharmacologic comfort measures per patient preference. Candidate for analgesia of choice if desired. Patient planning waterbirth Anticipate progress to NVD
--- NOTE | 2023-12-12 08:17 | P.OBPN_ITS ---
Subjective Time Seen by Provider: 08:15 Date Seen: 12/12/23 Narrative: Celine is currently on 5 of Pitocin and katarina every 1.5-2.5 minutes. she is starting to very more uncomfortable with contractions and is breathing with them but coping well. She is changing positions and using up right positions. She requested a SVE and was found to be 6cm/90%/0 station. She desires hydrotherapy. Will fill the bathroom tub at this time for comfort. Decreased Pitocin to 3 and will consider reducing further or discontinuing if she continues to contract frequently. Objective Vital Signs: Last Vital Signs Temp 97.6 F 12/12/23 07:30 Pulse 121 H 12/12/23 07:29 Resp 16 12/12/23 05:42 BP 119/69 12/12/23 07:29 Pulse Ox 99 12/12/23 07:30 Pelvic Exam Dilation (cm): 6 Effacement (%): 90 Station: 0 Contractions Monitor mode: External Contraction Frequency: 1.5-2.5 Contraction pattern: Regular Contraction intensity: Moderate Pitocin Rate (mU/min): 3 Assessment Assessment: active labor Station: 0 Amniotic Membrane Status: AROM Status: Category l Heart Rate Baseline: 155 Research Worker Encyclopedia Variability: Moderate (6-25) Monitor Accelerations: Present Monitor Decelerations: None Plan Plan: ASSESSMENT:? 20 at 40 2/7 weeks gestation? Labor type: induction, active labor? Category 1 FHR pattern.?? Labor complicated by: elevated p/c ratio with elevated BP not yet meeting criteria for HTN. ? GBS negative? ? PLAN:? Induction ongoing for concerns of preeclampsia with new onset proteinuria with one mild range blood pressure. Will continue to monitor BP. IV Pitocin started at 0030. Reduced for frequent contractions. Will continue to reduce as needed. Continue with routine intrapartum cares as ordered. Continuous EFM, can consider intermittent after 30-45 minutes if Pitocin is discontinued and blood pressures remain WNL. Patient encouraged to move and change positions to promote physiologic labor and .?? Nonpharmacologic comfort measures per patient preference. Candidate for analgesia of choice if desired. Patient planning waterbirth Anticipate progress to NVD
[2023-12-12] MEDS: fentaNYL 100 MCG/2 ML inj 25 MCG INTRATHECA (14:13)
--- NOTE | 2023-12-12 14:23 | P.ANBPRC_ITS ---
[facility] Medical History (Updated 12/11/23 @ 16:21 by Julienne Fields CNM) Hx of scoliosis ?Z87.39 - Personal history of other diseases of the musculoskeletal system and connective tissue (ICD-10) Depression ?F32.A - Depression, unspecified (ICD-10) Surgical History (Updated 04/25/23 @ 08:49 by Julienne Fields CNM) [place] teeth extracted ?K08.409 - Partial loss of teeth, unspecified cause, unspecified class (ICD- 10) Family History (Updated 04/25/23 @ 11:04 by Julienne Fields CNM) Mother Skin cancer (melanoma) Breast cancer Father Folic acid deficiency disease Social History (Updated 04/25/23 @ 10:38 by Julienne Fields CNM) Narrative: SOCIAL? ? Education: high school? ? 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 ? Partner: Jefferson, , works as a welder fabricator? ? Lives with: Jefferson? ? Pets: 2 dogs? ? Abuse: Denies past Safe at home with current partner, partner was present when asked? ? Special Diet: Denies? ? Ok with a blood transfusion: yes? ? Culture or congregational beliefs: denies? What is your current living situation?: I presently have a place to live Problems where you live: no known problems In the past 12 months, utilities in danger of being shut off: no In past 12 months, lack of transportation kept you from medical appts, meetings, work, or getting things needed for daily living: no In the past 12 mos, have been you worried that your food would run out before you had money to buy more?: never true In the past 12 mos, the food you bought just didn't last and you didn't have money to buy more?: never true Smoking Status: Never smoker Do you use any of these nicotine containing products: None Second hand tobacco smoke exposure: No How often do you have a drink containing alcohol: never AUDIT-C Alcohol total score: 0 Non-prescribed substance use: denies use How often does anyone, including family, friends and others, physically hurt you : never How often does anyone, including family, friends and others, insult or talk down to you: never How often does anyone, including family, friends and others, threaten you with harm: never How often does anyone, including family, friends and others, scream or curse at you: never Little interest or pleasure in doing things: not at all Feeling down, depressed, or hopeless: not at all Meds Home Medications and Allergies Home Medications Medication Instructions Recorded Confirmed Type vits no.126-ferrous fum 2 tab PO DAILY 04/25/23 12/11/23 History 28 mg iron-folic acid 800 mcg tablet (Classic ) cholecalciferol (vitamin D3) 10 50 mcg PO QDAY 08/23/23 12/11/23 History mcg (400 unit) capsule ferrous sulfate 137 mg (45 mg 137 mg PO .every other 08/23/23 12/11/23 History iron) tablet,extended release Allergies Allergy/AdvReac Type Severity Reaction Status Date / Time No Known Drug Allergies Allergy Verified 12/11/23 10:00 Results Vital Signs Vital Signs: Last Vital Signs Temp 98 F 12/12/23 13:16 Pulse 71 12/12/23 14:19 Resp 22 12/12/23 11:36 BP 116/59 L 12/12/23 14:19 Pulse Ox 100 12/12/23 14:19 Weight: 69.4 kg Height: 165.1 cm Anesthesia Procedures Intrathecal Patient Location: OB Start Time: : Stop Time: :25 Start Date: 12/12/23 Stop Date: 12/12/23 Reason for Block: procedure for pain Patient Position: right lateral decubitus Performed By: Maurizio Carr Preanesthetic Checklist: IV checked, site marked, risks and benefits discussed, monitors and equipment checked, pre-op evaluation, timeout performed and anesthesia consent Prep: chlorhexidine gluconate Monitoring: blood pressure monitoring, continuous pulse oximetry and heart rate Approach: midline Vertebral Space: lumbar (1-5) Needle Type: Pencan Injection Technique: single-shot Needle gauge: 25 Needle Length (cm): 10 cm
--- NOTE | 2023-12-12 14:45 | PM.OBPNL ---
Subjective Time Seen by Provider: 14:30 Date Seen: 12/12/23 Narrative: Celine's pain increased in intensity slowly after AROM around 0925 she requested to get into the tub for pain. She labored there until feeling pressure. at that time she was found to have an anterior rim. She continued to labor and coped well. At around 1115 she was rechecked and found to still have a slight anterior rim that easily reduced with spontaneous pushing. She pushed in the tub with support in many different positions including hands and knees, back, runners pose and movement. She did get out of the tub to empty her bladder as well. After about 2 hours of pushing she got out of the tub where she tried many positions for pushing and positioning including inversion, side lying, hands and knees, and on the toilet. She had a lot of back pain with contractions and pushing. Around 1430 we discussed options moving forward as she was starting to head toward exhaustion, was in significant pain, and was starting to not cope as well. We discussed potential options of epidural placement, evaluation of OB provider for potential vacuum/forceps or manual rotation, and expectant management. She would like to proceed with an epidural. We will reevaluate after placement. Objective Vital Signs: Last Vital Signs Temp 98 F 12/12/23 13:16 Pulse 95 12/12/23 14:35 Resp 22 12/12/23 11:36 BP 119/57 L 12/12/23 14:35 Pulse Ox 99 12/12/23 14:44 Pelvic Exam Dilation (cm): 10 Effacement (%): 100 Station: +1 Contractions Monitor mode: External Contraction Frequency: 1.5-3 Contraction pattern: Regular Contraction intensity: Moderate Pitocin Rate (mU/min): 0 (off around 0900) Assessment Assessment: active labor Station: +1 Amniotic Membrane Status: AROM Status: Category l Heart Rate Baseline: 145 Manufacturing Test Technician Variability: Moderate (6-25) Monitor Accelerations: Present Monitor Decelerations: Variable (occasional with pushing ) Plan Plan: Plan Plan: ASSESSMENT:? 20 at 40 1/7 weeks gestation? Labor type: induction, active labor, no longer on Pitocin? Category 1 FHR pattern.?? Labor complicated by: elevated p/c ratio with elevated BP not yet meeting criteria for HTN, prolonged second stage. ? GBS negative? ? PLAN:? Induction for concerns of preeclampsia with new onset proteinuria with one mild range blood pressure. Will continue to monitor BP. IV Pitocin discontinued. Continue to contract regularly. Continue with routine intrapartum cares as ordered. Continuous EFM after epidural placement. Patient encouraged to consider epidural placement to aid in labor progression. Will reevaluate after placement.?? Anticipate progress to NVD
--- NOTE | 2023-12-12 15:30 | PM.OBPNL ---
Subjective Time Seen by Provider: 15:31 Date Seen: 12/12/23 Narrative: Ms. Garcia is a 18yo at 40w2d GA admitted for induction of labor for preeclampsia without severe features. Induction course has included Cytotec, Pitocin and AROM - where Pitocin was discontinued due to spontaneous onset labor. She has been complete and pushing for nearly 4 hours, where she has made minimal descent from 0 to +1 station. She pushed on medicated for several hours, now status post ITN where she no longer feels pain/contractions. Obstetric consultation was requested to assess position and review options for management. Celine notes excellent pain control, where she can move her right lower extremity somewhat but not the left. She is understandably disappointed with low progression through the 2nd stage of labor. Objective Exam: General: Alert and oriented, in no acute distress Abdomen: Gravid. EFW 3400g by Js's. Transabdominal ultrasound confirms anterior spine. heart rate: Category 1. Baseline is 140 beats per minute, moderate variability, accelerations present. No decelerations. [place]: Brittni every 2 minutes spontaneous Sterile vaginal exam: Cervix is completely dilated, station is +1. station feels KIERAN with greater than 45? of rotation. No descent appreciated across 1 maternal pushing effort. Vital Signs: Last Vital Signs Temp 98 F 12/12/23 13:16 Pulse 85 12/12/23 14:51 Resp 22 12/12/23 11:36 BP 114/69 12/12/23 14:51 Pulse Ox 98 12/12/23 15:19 Contractions Monitor mode: External Contraction pattern: Regular Contraction intensity: Moderate Pitocin Rate (mU/min): 4 Assessment Amniotic Membrane Status: AROM Status: Category l Plan Plan: Ms. Garcia is a 18yo at 40w2d GA ongoing induction of labor for preeclampsia without severe features. Labor course has been complicated by protracted 2nd stage of labor, where station is +1 and position KIERAN with greater than 45? rotation after 4 hours of pushing. EFW 3400 g by Js and maternal pelvis feels adequate. Explained that unfortunately I do not have any modifiable factors to alter her second-stage progress. I do not recommend consideration of an operative vaginal delivery at +1 station, given risks associated with mid pelvic forceps. Celine has been complete for 4 hours, pushing for most of that time. We reviewed option to try to push for an additional 30 minute (to total 4 hours) versus proceeding with primary now. I explained that I do not think 30 minutes of additional pushing would likely change her outcome, where would only offer consideration operative vaginal delivery if position rotates and descent is made to +2. Explained risks of prolonged 2nd stage and hemorrhage in particular. Patient and her discussed this for a few moments, they wish to proceed with primary delivery at this time. We discussed the risks of primary , including bleeding, infection and damage to surrounding structures. Discussed risks of in 2nd stage including difficult extraction and hemorrhage secondary to atony or tissue trauma. Reviewed safety steps built in the procedure, patient would be agreeable to blood transfusion if medically necessary. Reviewed risk of infection, plan perioperative Ancef and azithromycin. Discussed potential risk of damage to surrounding structures and implications. Written consent was obtained. - Plan to proceed with primary delivery - Plan perioperative Ancef and azithromycin - Pain control per Anesthesia, likely epidural versus repeat spinal - Hemoglobin was 12.6 on admission, planning to draw type and screen now - Blood type A positive - GBS negative
[2023-12-12] MEDS: AZITHROMYCIN 500 MG in 0.9 % SODIUM CHLORIDE 250 ml 250 ML 255 MG IVPB (15:38)
--- NOTE | 2023-12-12 16:02 | PM.OBPRCCS ---
Procedure Time Seen by Provider: 17:54 Date of procedure: 12/12/23 Pre-op diagnosis: Arrest of descent Post-op diagnosis: same Procedure Done: Global Will [facility] bill your pro fee for this procedure?: Yes Blood Loss Measurement Type: QBL (550) Bakri Used: No IV fluids (mL): 500 Urine Output (mL): 150 Surgeon: Roman Palma MD Anesthesia Type: Spinal Findings: Unremarkable uterus, fallopian tubes ovaries Small left simple paratubal cyst Live born male Procedure Name: Primary delivery Procedure Description: Patient was taken to the operating room with IV running. She received cefazolin and azithromycin in preoperative prophylaxis. Spinal anesthesia was administered. Coelho catheter was inserted. She was prepped and draped in the usual sterile fashion. Anesthesia was tested and found to be adequate. A low-transverse skin incision was made with a scalpel and carried through to the underlying layer of fascia with the scalpel. The subcutaneous fat was dissected off the underlying fascia with Bovie and blunt dissection. The fascia was nicked in the midline with a scalpel, and this incision was extended laterally with scissors. The rectus muscles were in the midline. Peritoneum was identified and entered bluntly. Bovie was used to widen this opening laterally. Rich O retractor was inserted and tightened down, providing excellent visualization of the lower uterine segment. The bladder reflection was found to be advanced along the lower uterine segment. A bladder flap was created with a combination of sharp and blunt dissection. Low-transverse uterine incision was made with a scalpel. Incision was widened bluntly. The 's head was grasped through the hysterotomy and elevated to the hysterotomy without difficulty. The remainder of the body delivered without incident with the help of fundal pressure. No nuchal cord was noted. Cord was clamped and cut after 30 seconds. Infant was handed off to attending nurses and pediatric provider. The placenta was delivered with gentle traction on the cord. The uterus was cleaned of all clots and debris with the dry lap pad. Hysterotomy was inspected, no extension noted. The hysterotomy was reapproximated with 0 Vicryl in a running, locked fashion. Second layer of the same suture was used in imbricating fashion to obtain hemostasis. Excellent uterine tone was noted throughout. The adnexa were examined and noted to be normal in appearance. The cul-de-sac and gutters were cleansed with dampened laparotomy sponge, removing any further clots and debris. The Rich O retractor was removed. The hysterotomy was reexamined and found to be hemostatic. The rectus muscles were examined and found to be hemostatic. The fascia was reapproximated with 0 Vicryl in a running fashion. Subcutaneous fat was irrigated and Bovie used on oozing vessels. The subcutaneous fat was reapproximated with 2-0 vicryl in an interrupted fashion. The skin was closed with a subcuticular stitch of 3-0 monocryl. Surgical glue was applied above this. Patient tolerated procedure well was taken to recovery area in stable condition. Surgical debrief was completed. details: - Liveborn male fetus - weight: 9 lb 6 oz - APGARs were 8 and 9 at 1 and 5 minutes respectively - Cord gases were not sent, cord blood for ABO testing not indicated Complications: None Pathology: specimen obtained, sent to pathology Surgery Debrief Performed: Yes Condition: stable Disposition: floor
[2023-12-12] MEDS: CEFAZOLIN 2 GM INJ IVP (16:18)
[2023-12-12] MEDS: OXYTOCIN 30 unit/500 ML in NS 30 UNIT/500 ML BAG 300 UNIT IVPB (16:30)
[2023-12-12] MEDS: KETOROLAC 30 MG/ML inj IVP (17:10)
--- NOTE | 2023-12-12 17:37 | W.ANESCHARGE ---
Anesthesia Charges Start Date/Time Anesthesia Start Date: 12/12/23 Anesthesia Start Time: 16:05 Stop Date/Time Anesthesia Stop Date: 12/12/23 Anesthesia Stop Time: 17:30 Summary Emergency: [facility]
--- NOTE | 2023-12-12 17:37 | W.PM.NB ---
Nerve Block Nerve Block Time Seen by Provider: 17:20 Date Seen: 12/12/23 Type of block requested by surgeon for post-operative analgesia: TAP Side: bilateral Time out performed: Yes Verification of patient name: Yes Verification of date of : Yes Site marking: site marked Name of person performing procedure: Mahin Ortiz Continuous monitoring Was continuous monitoring of O2 sat, B/P, cardiac technologist, recorded every 15 minutes?: Yes Procedure Checklist: sterile prep, needles and gloves Ultrasound guided. Images saved: Yes Medications given in 5ml increments after negative aspiration: Marcaine %: 0.25 mL: 30 Needle gauge: 20 and Exparel mL: 10 Needle gauge: 20 Patient tolerated procedure well: Yes Additional comments: Injected in 5 mL increments after negative aspiration Block Charges Block Charge (with Pro Fee): TAP Bilateral Use of Ultrasound Machine for Block: Yes- US Guidance/pain block
[2023-12-13] VITALS (19 sets, daily range): BP systolic 93–107; BP diastolic 54–70; PULSE 87–97; RESP 14–18; TEMP 36.3–36.9; O2SAT 96–100
[2023-12-13] MEDS: SODIUM CHLORIDE 0.9 % (FLUSH) 10 ML SYRINGE IVF ×2 (00:32→06:30)
[2023-12-13] MEDS: KETOROLAC 30 MG/ML inj IVP ×4 (00:33→19:37)
[2023-12-13 01:29] LABS: Rapid Plasma Reagin (RPR) Non Reactive (Non Reactive)
[2023-12-13 06:22] LABS: Hemoglobin* 10.6 gm/dL (12.0-16.0)
--- NOTE | 2023-12-13 07:59 | PM.OBPNVD1 ---
OB - PN:Subj Subjective Date Seen: 12/13/23 Patient comments OB post-: no complaints, pain well controlled and flatus present [place] status: [place] feeding status: exclusively Narrative: Celine is a 18 y.o. who was admitted to [facility] & [facility] for IOL.? She had an uncomplicated primary .? ? The patient feels well.? The pain is well controlled with current medications.? She has no new complaints.? She is breast feeding and reports things are going well.? the patient has done well.? Vitals have been stable.? She has remained afebrile.? Has a good appetite, is tolerating a general diet.? She is voiding without difficulty.? She is passing gas and has not had a bowel movement.? She is ambulating and denies any dizziness.? Has Small amount of rubra lochia.? OB - PN: Obj Exam Physical Exam: Vital signs: Temp Pulse Resp BP Pulse Ox O2 Del Method 98.4 F 94 18 96/62 97 Room Air 12/13/23 00:20 12/13/23 00:20 12/13/23 06:40 12/13/23 00:20 12/13/23 00:20 12/13/23 00:20 Narrative: GENERAL APPEARANCE:? normal affect, alert, no distress MOOD:? appropriate CHEST:? clear to auscultation HEART:? regular rate and rhythm ABDOMEN:? soft, non-tender the uterine fundus is firm At Umbilicus, Midline and is appropriate for the stage of recovery. EXTREMITIES:? normal and no edema Incision: Dressing clean dry and intact, due to be removed today Urinary Catheter Management: Urethral: Cath placed during this visit: yes Urethral indwelling: No Reason for continuing: surgical procedure Insertion date: 12/12/23 Insertion time: 15:45 OB - PN: Obj Data Labs Labs: Laboratory Results - last 24 hr 12/11/23 12/12/23 12/13/23 11:27 15:55 06:04 Hgb 10.6 L RPR Screen Non Reactive Blood Type A Positive Antibody Screen NEGATIVE OB - PN: A/P Delivery Assessment and Plan (1) Proteinuria affecting in third trimester: Status: Acute (2) care following delivery: Status: Acute (3) Lactating mother: Status: Acute (4) Preeclampsia: Status: Acute Plan day: 1 Plan: routine care Comments: Assessment/Plan?G 1 P 1 status post uncomplicated primary .? ?? 1.? Continue route PP cares? 2.? .? May see if desired? 3.? Anticipate discharge home tomorrow or the following day per pt preference? 4. Monitor blood pressures and treat per protocol if severely elevated?
[2023-12-13] MEDS: ACETAMINOPHEN 500 MG TABLET 1000 MG PO (08:22)
[2023-12-13] MEDS: DOCUSATE SODIUM 100 MG CAPSULE PO (08:23)
[2023-12-13 10:01] LABS: Bile Acids, Total 3 umol/L (0-10)
--- NOTE | 2023-12-13 13:38 | PM.ANPOST ---
Post Anesthesia Note Post Anesthesia Note Patient seen: Inpatient Respiratory Status: adequate Cardiovascular Status: adequate Mental Status: baseline Pain: adequate Temp: baseline Anesthetic awareness: N/A Complications: none Follow care: none
[2023-12-13] MEDS: LANOLIN CREAM 1 APPLIC TOPICAL (19:37)
[2023-12-14 01:40] VITALS: BP 111/74; PULSE 100; RESP 16; TEMP 36.3; O2SAT 98
[2023-12-14] MEDS: KETOROLAC 30 MG/ML inj IVP (01:44)
[2023-12-14 05:12] VITALS: BP 110/72; PULSE 100; RESP 16; TEMP 36.8; O2SAT 97
--- NOTE | 2023-12-14 08:01 | P.OBPN_ITS ---
OB - PN:Subj Subjective Date Seen: 12/14/23 Narrative: Celine is a 18 y.o. who was admitted to L & D for induction of labor for pre- eclampsia. ?She had an uncomplicated .?The patient feels well. ?The pain is well controlled with current medications. ?She has no new complaints. ? She is breast feeding and reports things are going well.? the patient has done well.? Vitals have been stable.? She has remained afebrile.? Has a good appetite, is tolerating a general diet. ?She is voiding without difficulty.? She is passing gas and has not had a bowel movement.? She is ambulating and denies any dizziness.? Has Small amount of rubra lochia. OB - PN: Obj Exam Physical Exam: Vital signs: Temp Pulse Resp BP Pulse Ox O2 Del Method 98.3 F 100 16 110/72 97 Room Air 12/14/23 05:12 12/14/23 05:12 12/14/23 05:12 12/14/23 05:12 12/14/23 05:12 12/14/23 05:12 Narrative: GENERAL APPEARANCE:? normal affect, alert, no distress MOOD:? appropriate CHEST:? clear to auscultation HEART:? regular rate and rhythm ABDOMEN:? soft, non-tender the uterine fundus is At Umbilicus, Midline and is appropriate for the stage of recovery. EXTREMITIES:? normal and no edema Incision: Healing well, no surrounding erythema, abnormal induration or disch arge Urinary Catheter Management: Urethral: Cath placed during this visit: yes Urethral indwelling: No Reason for continuing: surgical procedure Insertion date: 12/12/23 Insertion time: 15:45 OB - PN: Obj Data Labs Labs: Laboratory Results - last 24 hr 12/11/23 11:27 Total Bile Acids 3 OB - PN: A/P Delivery Assessment and Plan (1) care following delivery: Status: Acute (2) Lactating mother: Status: Acute (3) Preeclampsia: Status: Acute Plan day: 2 Plan: routine care Comments: Routine post-operative care Lactating mother, may see if desired Continue to monitor BP Anticipate discharge tomorrow
[2023-12-14 08:08] VITALS: BP 117/78; RESP 16; O2SAT 98
[2023-12-14] MEDS: ACETAMINOPHEN 500 MG TABLET 1000 MG PO ×2 (08:19→16:33)
[2023-12-14] MEDS: DOCUSATE SODIUM 100 MG CAPSULE PO (08:19)
--- NOTE | 2023-12-14 08:59 | SUR.PHASEI ---
Verified PACU times with Whitney Henderson RN.
[2023-12-14] MEDS: IBUPROFEN 600 MG TABLET PO ×2 (12:46→20:53)
[2023-12-14 13:45] VITALS: BP 122/78; PULSE 112; RESP 16; TEMP 36.7; O2SAT 98
[2023-12-14 16:24] VITALS: BP 110/71; PULSE 88; RESP 15; TEMP 36.7; O2SAT 99
[2023-12-14 21:04] VITALS: BP 139/83; PULSE 84; RESP 12; TEMP 36.8; O2SAT 98
[2023-12-15 02:39] VITALS: BP 127/85; PULSE 103; RESP 16; TEMP 37
[2023-12-15] MEDS: ACETAMINOPHEN 500 MG TABLET 1000 MG PO (04:39)
[2023-12-15 08:34] VITALS: BP 115/73; PULSE 82; RESP 16; TEMP 37; O2SAT 98
[2023-12-15] MEDS: DOCUSATE SODIUM 100 MG CAPSULE PO (08:43)
[2023-12-15] MEDS: IBUPROFEN 600 MG TABLET PO (08:43)
--- NOTE | 2023-12-15 09:34 | PM.OBDSVD1 ---
DS: Providers Provider Date Seen: 12/15/23 Date of admission: 12/11/23 12:12 Primary care physician: Alcira Arreola MD Admitting Clinician: Julienne Fields CNM Attending Physician on discharge: Julienne Fields CNM Date of Discharge: 12/15/23 DS: Diagnosis Discharge Diagnosis (1) Lactating mother: Status: Acute (2) Preeclampsia: Status: Acute (3) care following delivery: Status: Acute (4) Anxiety: Status: Acute Problem details: no current medications or therapy Exam Narrative: Exam Narrative: GENERAL APPEARANCE:? normal affect, alert, no distress? MOOD:? appropriate? CHEST:? clear to auscultation and percussion? HEART:? regular rate and rhythm? ABDOMEN:? soft, non-tender the uterine fundus is u-1 and is appropriate for the stage of recovery. Incision clean, dry and intact.? EXTREMITIES:? normal and no edema? Const: Vital Signs, click to edit/add: Vital Signs - 24 hr 12/14/23 13:45 12/14/23 16:24 12/14/23 21:04 Temperature 98.1 F 98.0 F 98.3 F Pulse Rate [Pulse Oximeter] 112 H 88 84 Respiratory Rate 16 15 12 Blood Pressure [Ri ght Arm] 122/78 110/71 139/83 Pulse Oximetry 98 99 98 Oxygen Delivery Me thod Room Air Room Air Room Air 12/15/23 02:39 12/15/23 08:34 Temperature 98.6 F 98.6 F Pulse Rate [Pulse Oximeter] 103 H 82 Respiratory Rate 16 16 Blood Pressure [Ri ght Arm] 127/85 115/73 Pulse Oximetry 98 Oxygen Delivery Me thod Room Air Documenting provider has reviewed patient's vital signs: yes OB - DS: Summary Hospital Course Hospital Course: Leo is a 18 year old G 1 P 1001 at 40w2d weeks gestation that was admitted to the Center on 12/11/23 for IOL for preeclampsia. She had an uncomplicated delivery after arrest of second stage in labor. She delivered a viable male infant. She is breast feeding. the patient has done well. The patient feels well.? Her pain is well controlled with current medications.? She has no new complaints.? Urinary output is adequate and she is voiding without difficulty.? Has a good appetite, is tolerating a general diet, is passing flatus, and has had a bowel movement.? Has small amount of rubra lochia.? She is ambulating well.? Unknown plans for control plan. Peripartum Data Infant delivery method: Primary C/S; Labored Procedures: Procedures Operation Date: 12/12/23 16:15 Actual Procedure Side Surgeon p Section Not Applicable Kati Palma MD complications: none Gender: Male Infant Discharge Plan: Home Status at Discharge Functional status at discharge: independent ambulation Overall status at discharge: patient is progressing back to baseline Time Spent with Patient Time attestation: Total time spent providing and/or coordinating discharge services: Discharge Plan Discharge Disposition: Home, Self-Care Date of Admission: 12/11/23 12:12 Attending Provider on Discharge: Becki Soler Primary Care Provider: Alcira Arreola Condition: Stable Anticipated Discharge Date/Time: 12/15/23 12:00 Discharge Medications: New docusate sodium 100 mg Capsule 100 mg PO DAILY Qty: 60 0RF ibuprofen 600 mg Tablet 600 mg PO Q6H PRN (Reason: Pain) Qty: 60 0RF Continued cholecalciferol (vitamin D3) 10 mcg (400 unit) capsule 50 mcg PO QDAY Classic 28 mg iron- 800 mcg tablet 2 tab PO DAILY Discontinued folic acid 1 mg tablet 4 mg PO QDAY Qty: 120 12RF ferrous sulfate 137 mg (45 mg iron) tablet extended release 137 mg PO .every other Hold Instructions: during IV iron infusions Discharge Orders: Discharge Order (Routine); Ordered 12/15/23 Ordered By: Becki Soler Patient Education: OB /Breast Feeding Additional Instructions: Discharge instructions were reviewed with the patient including signs and symptoms of infection and home going medications? ?? Activity restrictions:? Lifting Restrictions: 20 pounds for 6 weeks? No high-impact or core exercises for 6 weeks.?? No not submerge incision under water X 2 weeks?? Nothing vaginally for 6 weeks: no tampons or intercourse? Do not drive while taking narcotic pain medication(s)? Off Work or School for 8 weeks? ?? Symptoms to report to doctor:? -Bleeding that saturates more than one pad per hour? -Passing clots larger than the size of a golf ball? -Pain not relieved by prescribed medication? -Fever above 100.4 degrees Fahrenheit? -A foul vaginal odor? -Difficulty in emotions, mood and functions? -Thoughts of hurting yourself and/or ? -Painful, reddened area in your breast? -Any drainage, redness or tenderness in your IV/epidural site? -Severe headache that doesn't improve after taking medications? -Changes in vision, including temporary loss of vision, blurred vision, and/or light sensitivity? -Upper abdominal pain (usually under ribs on the right side)? -Decrease in urination or painful, frequent urinating? -Chest pain? -Shortness of breath? -Tenderness or pain with redness and/swelling in the calf(s) of your leg? Follow up visits:?? 1. 1 week visit:? incision check.? 2. 2-week visit: discuss feeding/care concerns, review control options and screen for anxiety/depression.? 3. 6-week visit for an annual exam.? ?? consultation services are available to all mothers and babies for the first year after delivery.? To make an appointment, please call [phone].? Activity Level: Activity as Tolerated Discharge Diet: Regular Follow Up Appointments: [facility] [Provider Group] Forms: MyHealth Info Instructions
== END 2023-12-15 11:08 | disposition home or self-care (01) | DRG 788 ==
LOC: OB OUT 12:13 → OB 12:13
PROVIDERS: Obstetrics & Gynecology; Admitting Provider Advanced Practice Midwife; PCP Family Medicine; Visit Provider Advanced Practice Midwife
PROC: 10D00Z1 Extraction of Products of Conception, Low, Open Approach (ICD-10-PCS; CPT 59514; principal; 2023-12-12 16:00)
DX: O14.04 Mild to moderate pre-eclampsia, complicating childbirth (principal); O63.1 Prolonged second stage (of labor); O32.4XX0 Maternal care for high head at term, not applicable or unspecified; O62.1 Secondary uterine inertia; G89.18 Other acute postprocedural pain; O99.344 Other mental disorders complicating childbirth; F41.9 Anxiety disorder, unspecified; F32.A Depression, unspecified; O99.42 Diseases of the circulatory system complicating childbirth; I47.9 Paroxysmal tachycardia, unspecified; Z87.39 Personal history of other diseases of the musculoskeletal system and connective tissue; Z37.0 Single live birth; Z84.81 Family history of carrier of genetic disease; O99.02 Anemia complicating childbirth; D64.9 Anemia, unspecified; Z3A.40 40 weeks gestation of pregnancy
CPT/HCPCS: 01967; 01968; 36415; 51798; 59200; 64488; 76815; 76942; 82239; 82565; 82570; 84156; 84450; 84460; 84520; 85018; 85025; 85027; 86592; 86850; 86900; 86901; 88307; 99140; A9270; C9290; J0456; J0665; J0690; J1100; J1200; J1885; J2274; J2371; J2405; J2590; J3010; J7050; J7120

== ENCOUNTER 2023-12-18 14:36 | Outpatient (CLI) | payer OTHER, SELFPAY ==
--- NOTE | 2023-12-18 14:30 | US_ITS ---
Patient: GABRIEL ESCAMILLA Facility:?[facility] Patient ID:?[id number] Site Patient ID:?[id number]. Site :?[id number] Study:?US-Pelvis -12/18/2023 3:13:45 PM Ordering Physician:Darlene Busch Final Report: INDICATION: Pelvic and perineal pain. The patient is 5 days and status post section (date not specified) according to the polysomnography technologist`s worksheet. COMPARISON: None available. TECHNIQUE: Transabdominal and endovaginal grayscale and spectral Doppler pelvic ultrasound. FINDINGS: Uterus: Measures 9 x 8.2 x 14.2cm. Heterogeneous myometrial echotexture. No focal uterine lesion. Anterior lower uterine segment scar. Unremarkable cervix. Please note that US is insensitive for detection of epithelial lesions of the cervix, compared to physical examination. Endometrial stripe: Measures 19mm in thickness (this is demonstrated best on the endovaginal cine clip). The endometrium/endometrial cavity is notable for nonspecific heterogeneous cystic and solid-appearing material including multiple echogenic foci. Findings are consistent with blood products in this patient who is recently . Retained products of conception are included in the differential for this appearance. Right Ovary: Measures 2.7 x 1.5 x 3.1cm and 6mL. Morphologically normal. Spectral Doppler demonstrates normalarterialblood flow. Left Ovary: Measures 2.3 x 1.7 x 3.3cm and 7mL. Morphologically normal. Spectral Doppler demonstrates normalvenousblood flow. Pelvic fluid: Small volume simple free fluid within the pelvic cul-de-sac. IMPRESSION: Nonspecific thickened heterogeneous endometrium. Differential diagnostic considerations include intrauterine blood clot, retained products of conception and endometritis, which may coexist. Unremarkable ovaries. Small volume anechoic pelvic free fluid. Dictated by Fitz Oliver MD @ 12/18/2023 3:26:40 PM Signed by:?Fitz Oliver MD @12/18/2023 3:26:40 PM (Electronic Signature)
== END 2023-12-18 14:37 | disposition home or self-care (01) ==
LOC: US 14:37
PROVIDERS: PCP Family Medicine; Visit Provider Registered Nurse
DX: R10.2 Pelvic and perineal pain (principal)
CPT/HCPCS: 76830; 76856; 93976

== ENCOUNTER 2024-04-17 14:19 | Outpatient (CLI) | payer BC, SELFPAY | END 2024-04-17 14:20 | disposition home or self-care (01) | PROVIDERS: PCP Nurse Practitioner Family; Visit Provider Nurse Practitioner Family | DX: R53.83 Other fatigue (principal); Z86.2 Personal history of diseases of the blood and blood-forming organs and certain disorders involving the immune mechanism | CPT/HCPCS: 82306; 82607; 82728; 83540; 83550; 84443; 85025; 85045 ==

== ENCOUNTER 2024-08-06 11:50 | Outpatient (CLI) | payer BC, SELFPAY ==
[2024-08-06 18:26] LABS: Bacterial Vaginosis* Negative (Negative); Candida glab/krus NOT DETECTED (No Detected); Candida species NOT DETECTED (No Detected); Trichomonas vaginalis NOT DETECTED (No Detected)
[2024-08-06 18:56] LABS: Chlamydia DNA Amplified* NOT DETECTED (No Detected); GC DNA Amplified* NOT DETECTED (No Detected)
== END 2024-08-06 11:51 | disposition home or self-care (01) ==
PROVIDERS: PCP Nurse Practitioner Family; Visit Provider Registered Nurse
DX: R10.2 Pelvic and perineal pain (principal)
CPT/HCPCS: 81513; 87086; 87481; 87491; 87591; 87661

== ENCOUNTER 2024-08-15 12:49 | Outpatient (CLI) | payer BC, SELFPAY ==
--- NOTE | 2024-08-15 13:00 | CRLHL7_ITS ---
For Patients: As a result of the Century Cures Act, medical imaging exams and procedure reports are released immediately into your electronic medical record. You may view this report before your referring provider. If you have questions, please contact your health care provider. CLINICAL HISTORY: Pelvic and perineal pain TECHNIQUE: 2D burgos scale ultrasound. In addition color Doppler and spectral Doppler analysis was performed of the pelvis using a transvaginal and transabdominal approach. FINDINGS: The uterus measures 7.2 x 3.0 x 4.6 cm. The endometrial lining appears normal and measures 6 mm in thickness. The right ovary measures 3.5 x 1.6 x 2.0 cm in size and the left ovary measures 4.4 x 2.0 x 2.2 cm. The ovaries demonstrate normal arterial and venous blood flow on color Doppler and spectral Doppler analysis. There are no suspicious fluid collections within the cul-de-sac. IMPRESSION: Normal pelvic ultrasound. Dictated by Tony Solorzano MD @ 08/15/2024 1:46:25 PM (Electronically Signed)
== END 2024-08-15 12:50 | disposition home or self-care (01) ==
LOC: US 12:50
PROVIDERS: PCP Nurse Practitioner Family; Visit Provider Registered Nurse
DX: R10.2 Pelvic and perineal pain (principal)
CPT/HCPCS: 76830; 76856; 93976

== ENCOUNTER 2024-12-18 11:00 | Outpatient (CLI) | payer BC, SELFPAY ==
--- NOTE | 2024-12-18 11:15 | CRLHL7_ITS ---
For Patients: As a result of the Century Cures Act, medical imaging exams and procedure reports are released immediately into your electronic medical record. You may view this report before your referring provider. If you have questions, please contact your health care provider. OBSTETRICAL ULTRASOUND TRANSVAGINAL ??? FIRST TRIMESTER, 12/18/2024 CLINICAL INDICATION: Dating and viability. Surgery: Prior . LMP: 10/13/2024 REHAN by LMP: 07/20/2025 Gestational age: 9 weeks 3 days Previous ultrasound: No TECHNIQUE: Real-time burgos-scale imaging of the fetus was performed transvaginal. Transvaginal imaging was performed for better visualization of fetus and ovaries. FINDINGS: CRL: 2.1 cm, 8 weeks 5 days; REHAN 07/25/2025 heart rate: 176 BPM Gestational sac: 4.5 cm, appears within normal limits Yolk sac: 3.7 mm, appears within normal limits Right ovary: Not visualized Left ovary: 3.3 x 2.1 x 2.4 cm, CL IMPRESSION: 1. Single living intrauterine measuring 8 weeks 5 days and sonographic due date of 07/25/2025. 2. Simple left adnexal cyst measures 2.0 x 1.7 x 1.6 cm. Incidental corpus luteum cyst of left ovary measures 1.7 cm. TONY JESUS M.D. Diagnostic Radiologist [email or web address] Transcribed: 1:[address]/Dictated by: Tony Jesus MD @ 12/19/2024 12:31:00 PM (Electronically Signed)
== END 2024-12-18 11:01 | disposition home or self-care (01) ==
LOC: US 11:01
PROVIDERS: PCP Nurse Practitioner Family; Visit Provider Advanced Practice Midwife
DX: Z34.91 Encounter for supervision of normal pregnancy, unspecified, first trimester (principal); O34.81 Maternal care for other abnormalities of pelvic organs, first trimester; N83.12 Corpus luteum cyst of left ovary; Z3A.08 8 weeks gestation of pregnancy
CPT/HCPCS: 76817; 83021; 86592; 86703; 86704; 86706; 86762; 86787; 86803; 86850; 86900; 86901; 87086; 87340

== ENCOUNTER 2025-02-04 16:25 | Emergency (ER) | payer BC, SELFPAY ==
--- OUTSIDE RECORDS SUMMARY | 2025-02-04 16:27 | XMS_ITS | Clinical Summary ---
Author Organization [facility] Address [address] [place] [address] Care Team Providers Care Cable Assembler [employer] Swager Name Role Phone Keyla Espinosa APRN, C.N.P., D.N.P. Primary Ca re Provider Unavailable Source Comments Patient records contain information from all sites at [facility]. For routine questions regarding patient records, call [phone] during business hours, M-F 8:00 AM - 5:00 PM Central Time. Record requests for emergency care only can be directed to [phone] at any time.[facility] Allergies Active Allergy Reactions Criticality Noted Date Comments Cat Dander Other (see comments) 02/05/2015 No reactions listed. Grass Pollen-Luis E, Standard Other (see comments) 02/05/2015 No reactions listed. Mold Other (see comments) 02/05/2015 Outdoor. No reactions listed. Pollen Extracts Other (see comments) 02/05/2015 No reactions listed. Ragweed Other (see comments) 02/05/2015 No reactions listed. Medications * This document contains information received from the source organization and may not represent a complete record from that organization. No known medications Active Problems Problem Noted Date Diagnosed Date Anxiety 08/14/2019 Nevus Dermal 03/29/2017 Keratosis Plantar 03/29/2017 Dermatitis Seborrheic 03/29/2017 Acne 03/29/2017 Migraine Headache With Aura 10/14/2014 Overview (10/13/2020): Classical migraine (Problem list name updated by automated process. Provider to review and confirm.) Rhinitis Allergic 03/23/2014 Immunizations Immunization Administration Dates Next Due 4vHPV (discontinued) 06/15/2015,02/05/2015,11/20 DTaP (Infanrix, [employer]) 01/24/2008 DTaP / Hep B / IPV (Pediarix) 2003, 003,2003 DTaP / Hib 04/13/2004 H1N1 All Forms 07/29/2009,06/28/2009 HepB Adult (HEPLISAV-B) 07/25/2021,06/07/2021 HepB, Unspecified 2003 Hib (HbOC) (discontinued) 2003,2003, 2003 IPV 01/24/2008 Influenza, Injectable, Quadrivalent 05/17/2020,1 ,06/10/2015 Influenza, Unspecified 04/29/2012,2009,05/24/2009,2007,06/26/2007,05/28/2006,05/09/2004,0 2003,2003 MCV4 (Menactra)(Discontinued) 02/26/2019, 015 MMR 01/13/2004 MMRV 01/24/2008 PCV7 (discontinued) 07/20/2004, 3,2003,2002 SARS-COV-2 (COVID-19) - PFIZ ER TS(Discontinued)(12 years or older) 09/19/2021 Tdap 11/20/2014 JC 01/13/2004 influenza vaccine quad (FLUZONE/FLUARIX) (6 months and older)(PF) 06/19/2022,05/18/2021,05/14/2019,2017,06/05/2013 Family History Medical History Relation Name Comments Anxiety depression Father elisabeth Anxiety disorder Father elisabeth Depression Father elisabeth Hyperlipidemia Father elisabeth Skin cancer Father's Sister 1 brian Depression Father's Sister 2 grazyna Suicide Attempts Father's Sister 2 grazyna Coronary artery disease Maternal Grandfather cyndi Heart disease Maternal Grandfather cyndi Lung cancer Maternal Grandfather cyndi Other cancer Maternal Grandfather cyndi bladder Arthritis Maternal Grandmother delores Breast cancer Maternal Grandmother delores Coronary artery disease Maternal Grandmother delores Breast cancer Mother franklyn Migraines Mother franklyn Skin cancer Mother franklyn Breast cancer Mother's Sister 1 mid 40s Breast cancer Mother's Sister 2 sarah Rheum arthritis Mother's Sister 2 sarah Anxiety disorder Paternal Grandmother zack Arthritis Paternal Grandmother zack Breast cancer Paternal Grandmother zack Depression Paternal Grandmother zack Lung cancer Paternal Grandmother zack Stroke Paternal Grandmother zack Relation Name Status Comments Father elisabeth Alive Father's Sister 1 brian Father's Sister 2 grazyna Maternal Grandfather cyndi Maternal Grandmother delores Mother franklyn Alive Mother's Sister 1 Mother's Sister 2 sarah Paternal Grandmother zack Social History Tobacco Use Types Packs/Day Years Used Date Smoking Tobacco: Never Smokeless Tobacco: Never Tobacco Cessation:Counseling Given: Yes Alcohol Use Standard Drinks/Week Comments No 0 (1 standard drink = 0.6 oz pur e alcohol) [facility] Utilities Answer Date Recorded In the past 12 months has e [employer], oil, or water [employer] threatened to shut off services in your home? No 10/14/2023 Humiliation, Afraid, Rape, and Kick questionnair e Answer Date Recorded Within the last year, have y ou been afraid of your partner or ex-partner? No 10/06/2022 Within the last year, have y ou been humiliated or emotionally abused in other ways by your partner or ex-partner? No Within the last year, have y ou been kicked, hit, slapped, or otherwise physically hurt by your partner or ex-partner? No 10/06/2022 Within the last year, have y ou been raped or forced to have any kind of sexual activity by your partner or ex-partner? No 10/06/2022 Hunger Vital Sign Answer Date Recorded Within the past 12 months, y ou worried that your food would run out before you got the money to buy more. Never true 10/14/19 24 Within the past 12 months, t he food you bought just didn't last and you didn't have money to get more. Never true 10/14/2023 PRAPARE - Transportation Answer Date Re corded In the past 12 months, has l ack of transportation kept you from medical appointments or from getting medications? No 09/27 In the past 12 months, has l ack of transportation kept you from meetings, work, or from getting things needed for daily living? No 10/14/2023 Depression Answer Date Recor ded PHQ-9 Total Score (max 27) 7 04/07 Housing Stability Answer Date Recorded What is your living situation today? I have a [facility] place to live 10/14/2023 Education Answer Date Recorded What is the highest level of school you have completed or the highest degree you have received? GED or equivalent 04/2023 Comments Unknown Sex and Gender Information Value Date Recorded Sex Assigned at Female 06/14/2021 6:37 PM CHILD ADOLESCENT PSYCHIATRIST Legal Sex Female 6:07 PM CHILD ADOLESCENT PSYCHIATRIST Gender Identity Female 06/14/2021 6:37 PM CHILD ADOLESCENT PSYCHIATRIST Sexual Orientation Straight 06/14/2021 6: 37 PM CHILD ADOLESCENT PSYCHIATRIST Last Filed Vital Signs Vital Sign Reading Time Taken Comments Blood Pressure 126/87 03/12/2023 6:09 PM CDT Pulse 76 03/12/2023 6:09 PM CDT Temperature 36.4 C (97.5 F) 10/30/2022 9:30 AM CDT Respiratory Rate 16 10/13/2020 3:33 PM CDT Oxygen Saturation 99% 10/30/2022 9:30 AM CDT Inhaled Oxygen Concentration - - Weight 49.9 kg (110 lb 0.2 oz) 03/12/2023 6:09 P M CDT Height 169.2 cm (5' 6.61) 10/06/2022 3:21 PM CS T Body Mass Index 17.43 10/06/2022 3:21 PM CHILD ADOLESCENT PSYCHIATRIST Plan of Treatment Health Maintenance Due Date Last Done Comments Cervical/Vaginal Cancer Screening 2003 HIV Screening 2003 Hepatitis C Screening 2003 Chlamydia and Gonorrhea Screening 04/14/2023 04/14/2022, 02/26/2019 Tobacco Cessation counseling 03/12/2024 03/12/2023 COVID-19 Vaccine ( season) 2024 09/19/2021, 04/08/2021, 03/16/2021 Depression Screening (Annual PHQ-2) 07/30/2024 DTaP,Tdap,and Td Vaccines (7 - Td or Tdap) 11/20/2024 11/20/2014, 01/24/2008, 04/13/2004, Additional history exists Influenza Vaccine (#1) 2025 , 05/18/2021, 05/17/2020, Additional history exists Pneumococcal vaccine (0-49 years) Aged Out 07/20/2004, 2003, 2003, Additional history exists No longer eligible based on patient's age to complete this topic IPV Vaccines Completed 01/24/2008, 06/29, 2003, Additional history exists HPV Vaccines Completed 06/15/2015, 01/27, 11/20/2014 Meningococcal Vaccine Completed 02/26/2019, 015 Hepatitis B Vaccines Completed 07/25/2021, 06/07/2021, 2003, Additional history exists Procedures Procedure Name Priority Date/Time Associated Diagnosis Comments CHLAMYDIA/GONORRHOE AE AMPLIFIED RNA Routine 04/14/2022 3:05 PM CDT Pelvic And Perineal Pain from Last 3 Months or Most Recently Relevant to Health Maintenance Results * Chlamydia / Gonorrhoeae Amplified RNA (04/14/2022 3:05 PM CDT) Source Urine, Urine, First Voided 04/17/2022 1:59 PM CDT ECLR Chlamydia trachomatis amplified RNA Negative Negative 04/17/2022 1:59 PM CDT ECLR Source Urine, Urine, First Voided 04/17/2022 1:59 PM CDT ECLR Neisseria gonorrhoeae amplified RNA Negative Negative 04/17/2022 1:59 PM CDT ECLR Varies (Urine, First Voided) 04/14/2022 3:05 PM CDT 04/14/2022 9:30 PM CDT us Keyla Espinosa APRN, C.N.P. , D.N.P. LAB MICROBIOLOGY - GENERAL ORDERABLES Final Result [facility] [address] [place] [address], [place] ECLR [facility] [place] [address] [place] [id number] from Last 3 Months or Most Recently Relevant to Health Maintenance Insurance [facility] Care Teams Cable Assembler [employer] Swager Relationship Specialty Start Date End Date Keyla Espinosa APRN, C.N.P., D.N.P. PCP - General Family Medicine 08/27/19
[2025-02-04 16:31] VITALS: BP 130/80; PULSE 110; RESP 20; TEMP 36; O2SAT 100; BMI 19.3
--- NOTE | 2025-02-04 16:46 | ED.GENADULT ---
HPI - General Adult General Chief complaint: Epistaxis/Nosebleed Stated complaint: Bloody nose, sob, blacked out, 16 weeks preg Time Seen by Provider: 02/04/25 16:26 History of Present Illness HPI narrative: Patient is a 20-year-old G2 para 1 status post for 1st , who is about 16 weeks estimated gestational age now by report. The patient follows with a copper roller handler printing here in [facility]. She reports she has had a nosebleed on and off for the last week primarily out of the right nostril but has been out of both. She also reports she had an episode today where she felt lightheaded and dizzy and near syncopal. She has had no vaginal bleeding or contractions. She does have a history of anemia with her 1st and she got an iron infusion. She has had a her 1st as well. No vaginal bleeding or discharge. Patient reports she is somewhat short of breath when she walks or exerts heavily. This has been for the last couple of weeks. No bleeding or clotting history. O2 sat today is 100% Related Data Home Medications ?Medication ?Instructions ?Recorded ?Confirmed vits no.126-ferrous fum 2 tab PO DAILY 04/25/23 02/04/25 28 mg iron-folic acid 800 mcg tablet (Classic ) Previous Rx's ?Medication ?Instructions ?Recorded folic acid 1 mg tablet 4 mg (4 x 1 mg) PO QDAY #120 tabs 11/27/24 Allergies Allergy/AdvReac Type Severity Reaction Status Date / Time No Known Drug Allergies Allergy Verified 02/04/25 16:30 Review of Systems Status of ROS: Reports: 6 or more systems reviewed and unremarkable except as noted in History and below [facility] Medical History History of anemia ?Z86.2 - Personal history of diseases of the blood and blood-forming organs and certain disorders involving the immune mechanism (ICD-10) Preeclampsia ?O14.90 - Unspecified pre-eclampsia, unspecified trimester (ICD-10) Anemia affecting ?O99.019 - Anemia complicating , unspecified trimester (ICD-10) Lactating mother ?Z39.1 - Encounter for care and examination of lactating mother (ICD-10) Hx of scoliosis ?Z87.39 - Personal history of other diseases of the musculoskeletal system and connective tissue (ICD-10) Depression ?F32.A - Depression, unspecified (ICD-10) Surgical History History of section, low transverse ?Z98.891 - History of uterine scar from previous surgery (ICD-10) [place] teeth extracted ?K08.409 - Partial loss of teeth, unspecified cause, unspecified class (ICD-10) Family History Mother Skin cancer (melanoma) Breast cancer Father Folic acid deficiency disease Social History Narrative: SOCIAL? ? Education: high school? ? 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 ? Lives with: Jefferson, son: Lissy Pets: 2 dogs? ? Abuse: Denies past ? Special Diet: Denies? ? Ok with a blood transfusion: yes? ? Culture or rastafarian beliefs: denies? RISK FACTORS Exercise Times/wk: No routinely, chasing toddler Hx of Depression and/or Anxiety/other mood disorder: no Seat Belt Use: Routinely Smoking: Denies present; Vaping, stopped with onset of Alcohol/day: Denies while Caffeine: 1 soda or bubbler per day max Drug Use: Denies past/present Chicken Pox: vaccinated MRSA: Denies What is your current living situation?: I presently have a place to live Problems where you live: no known problems In the past 12 months, utilities in danger of being shut off: no In past 12 months, lack of transportation kept you from medical appts, meetings, work, or getting things needed for daily living: no In the past 12 mos, have been you worried that your food would run out before you had money to buy more?: never true In the past 12 mos, the food you bought just didn't last and you didn't have money to buy more?: never true Smoking Status: Never smoker Do you use any of these nicotine containing products: None Second hand tobacco smoke exposure: No How often do you have a drink containing alcohol: never AUDIT-C Alcohol total score: 0 Non-prescribed substance use: denies use How often does anyone, including family, friends and others, physically hurt you: never How often does anyone, including family, friends and others, insult or talk down to you: never How often does anyone, including family, friends and others, threaten you with harm: never How often does anyone, including family, friends and others, scream or curse at you: never Exam Narrative: Exam Narrative: Objective: Vital signs within normal limits Alert orient x3 HEENT shows small amount of bleeding in the right anterior septum. Heart rhythm regular heart murmur Abdomen benign gravid, nontender Extremities are no edema neurologic nonfocal. Const: Vital Signs, click to edit/add: Vital Signs - 24 hr 02/04/25 16:31 02/04/25 18:05 Temperature 96.8 F L 97.6 F Pulse Rate [Pulse Oximeter] 110 H 88 Respiratory Rate 20 18 Blood Pressure [Ri ght Upper Arm] 130/80 110/65 Pulse Oximetry 100 100 Oxygen Delivery Me thod Room Air Room Air Course Vital Signs Vital signs: Initial Vital Signs Temperature 96.8 F L 02/04/25 16:31 Temperature Source Temporal Artery Scan 02/04/25 16:31 Pulse Rate 110 H 02/04/25 16:31 Respiratory Rate 20 02/04/25 16:31 Blood Pressure 130/80 02/04/25 16:31 Blood Pressure Mean 96 02/04/25 16:31 Pulse Oximetry 100 02/04/25 16:31 Oxygen Delivery Method Room Air 02/04/25 16:31 Vital Signs Temperature 96.8 F L 02/04/25 16:31 Pulse Rate 110 H 02/04/25 16:31 Respiratory Rate 20 02/04/25 16:31 Blood Pressure 130/80 02/04/25 16:31 Pulse Oximetry 100 02/04/25 16:31 Oxygen Delivery Method Room Air 02/04/25 16:31 Temperature 97.6 F 02/04/25 18:05 Pulse Rate 88 02/04/25 18:05 Respiratory Rate 18 02/04/25 18:05 Blood Pressure 110/65 02/04/25 18:05 Pulse Oximetry 100 02/04/25 18:05 Oxygen Delivery Method Room Air 02/04/25 18:05 Medications Administered Medications: Discontinued Medications Generic Name Dose Route Start Last Admin Trade Name Freq PRN Reason Stop Dose Admin Sodium Chloride 1,000 mls @ 6,000 mls/hr 02/04/25 16:45 02/04/25 17:43 0.9 % Sodium Chloride 1000 Ml IV 02/04/25 16:54 Infused .Q10M TESS Infusion Medical Decision Making MDM Narrative Medical decision making narrative: 20-year-old female 16 weeks estimated gestational G2 para 1, presents with right nasal epistaxis. Also pump presents with a near syncopal episode and some shortness of breath with exertion. At this point she appears to have mild dehydration and his dry in her mouth. Her examination is normal. The exception would be she has friable right nasal mucosa anteriorly. Patient has no abdominal tenderness. She has no vaginal bleeding or discharge. Patient has not had any bleeding or clotting problems. Procedure: Silver nitrate was applied to the is small area of the anterior septum on the right nostril. There was good hemostasis. I think at this point I would be reasonable to do an EKG, give the patient a L fluid as she may be suffering from mild dehydration. She also has a history of anemia and I think checking her blood counts would be appropriate. Should need to follow up with the midwives in the next couple of days. Given her O2 sat is 100% her lung exam is clear I do not expect suspect a pulmonary embolus or other lung pathology. May need further workup if this symptom continues. Will review how she feels after completion of her fluid infusion and review of her lab studies. Addendum 5:24 p.m.: The patient's EKG shows normal sinus rhythm no acute ST T wave changes no evidence of right ventricular strain. This is by my read. The patient has a hemoglobin of 11.5. Will review her ear panel returns. At this point she feels better. We have cauterized her nose. I think it is acceptable for her to go home, rest, light activity continue her good fluid intake. Would recommend a follow-up with her midwives or [facility] within the next couple of days. Return he is sooner as needed. Recommend light activity as mention. Addendum 6:00 p.m.: The patient finished her fluid she has had no further nosebleed. I think at this point can lower to go home rest light activity. Would recommend update and call her copper roller handler printing or wounds health provider tomorrow. Recheck as they recommend. Return to the ED as needed. Push fluids at home. Avoid blowing or picking her nose. Return if problems or concerns. Lab Data Labs: Lab Results 02/04/25 Range/Units 17:04 WBC 9.26 (4.50-11.00) K/uL RBC 3.78 L (4.00-5.20) m/uL Hgb 11.5 L (12.0-16.0) gm/dL Hct 34.6 (33.0-51.0) % MCV 92 (80-100) fL MCH 30 (26-34) pg MCHC 33 (32-36) gm/dL RDW Coeff of [place] 13.2 (11.5-15.5) % Plt Count 270 (140-440) K/uL Neut % (Auto) 67.8 (42.0-72.0) % Lymph % (Auto) 21.0 (20-44) % [place] % (Auto) 6.0 (0.0-11.0) % Eos % (Auto) 4.8 (0.0-7.0) % Baso % (Auto) 0.3 (0.0-3.0) % Neut # (Auto) 6.28 (1.7-7.0) K/uL Lymph # (Auto) 1.94 (0.90-2.90) K/uL [place] # (Auto) 0.60 (0.00-0.90) K/UL Eos # (Auto) 0.44 (0.00-0.50) K/uL Baso # (Auto) 0.03 (0.00-0.30) K/uL Abs Immat Gran (auto) 0.01 (0.00-0.30) K/uL Imm/Tot Granulo (auto) 0.1 % Sodium 133 L (135-149) mmol/L Potassium 3.7 (3.6-5.1) mmol/L Chloride 103 (96-114) mmol/L Carbon Dioxide 25 (20-32) mmol/L Anion Gap 5 L (7-15) mEq/L BUN 8 (5-24) mg/dL Creatinine 0.4 L (0.5-1.5) mg/dL Estimated Creat Clear 183.25 Estimated GFR 143 ml/min Glucose 78 (60-115) mg/dL Calcium 9.4 (8.4-10.6) mg/dL Discharge Plan Discharge Clinical Impression: Acute anterior epistaxis, , Acute dehydration Patient Disposition: Home w/ Parent or Adult Condition: Improved Instructions: at 15 to 18 Weeks (ED) Additional Instructions: Rest, fluids, avoid nasal picking or blowing. Would recommend a follow-up with the midwives or [facility] within the next day or 2. Call tomorrow to make an appointment. Return to the ED as needed. Prescriptions: No Action Classic 28 mg iron- 800 mcg tablet 2 tab PO DAILY folic acid 1 mg tablet 4 mg PO QDAY Qty: 120 12RF Follow Up/Referrals: Swati Sears APRN, VOCATIONAL COUNSELOR [Primary Care Provider, Family Practice] Stand Alone Forms: [facility] Info Instructions
[2025-02-04 17:21] LABS: Hematocrit 34.6 % (33.0-51.0); Hemoglobin* 11.5 gm/dL (12.0-16.0); Immature Granulocytes Abs Auto 0.01 K/uL (0.00-0.30); Immature Granulocytes Pct Auto 0.1 %; Lymphocytes Absolute Auto 1.94 K/uL (0.90-2.90); Mean Corpuscular HGB Conc 33 gm/dL (32-36); Mean Corpuscular Hemoglobin 30 pg (26-34); Mean Corpuscular Volume 92 fL (80-100); RDW Coefficient of Variation % 13.2 % (11.5-15.5); Red Blood Count 3.78 m/uL (4.00-5.20); White Blood Count* 9.26 K/uL (4.50-11.00)
[2025-02-04 17:22] LABS: Slide Review Reflex No
[2025-02-04 17:42] LABS: Chloride* 103 mmol/L (96-114); Potassium* 3.7 mmol/L (3.6-5.1); Sodium* 133 mmol/L (135-149)
[2025-02-04 17:45] LABS: Anion Gap 5 mEq/L (7-15); Blood Urea Nitrogen* 8 mg/dL (5-24); Calcium* 9.4 mg/dL (8.4-10.6); Carbon Dioxide* 25 mmol/L (20-32); Creatinine* 0.4 mg/dL (0.5-1.5); Est. Creatinine Clearance* 183.25; Estimated Glomerular Filt Rate 143 ml/min; Glucose* 78 mg/dL (60-115)
[2025-02-04 18:05] VITALS: BP 110/65; PULSE 88; RESP 18; TEMP 36.4; O2SAT 100
[2025-02-04] MEDS: SILVER NITRATE APPLICATOR 1 EACH STICK..EA. TOPICAL (18:29)
== END 2025-02-04 18:07 | disposition home or self-care (01) ==
PROVIDERS: Emergency Provider Family Medicine; PCP Nurse Practitioner Family
DX: R04.0 Epistaxis (principal); E86.0 Dehydration; Z3A.16 16 weeks gestation of pregnancy
CPT/HCPCS: 30901; 36415; 80048; 85025; 93005; 99284; 99285; A9270; J7030

== ENCOUNTER 2025-03-06 08:03 | Outpatient (CLI) | payer BC, SELFPAY ==
--- NOTE | 2025-03-06 08:15 | CRLHL7_ITS ---
For Patients: As a result of the Century Cures Act, medical imaging exams and procedure reports are released immediately into your electronic medical record. You may view this report before your referring provider. If you have questions, please contact your health care provider. OBSTETRICAL ULTRASOUND ??? ANATOMY SURVEY, 03/06/2025 INDICATION: anatomy survey. Supervision of normal . 2, para 1. CLINICAL HISTORY: LMP: 10/13/2024 REHAN by LMP: 07/20/2025 Gestational age: 20 weeks 4 days TECHNIQUE: Real-time burgos-scale transabdominal imaging of the fetus was performed. PREVIOUS ULTRASOUND: 12/18/2024 FINDINGS: position: Vertex Cervix: Visualized Technique: Transabdominal Length of closed cervix: 5.0 cm Placenta position: Anterior Technique: Transabdominal Placenta tip to internal os: 5.3 cm Umbilical cord: 3-vessel cord Placental insertion: Central Amniotic fluid: 5.4 cm SDP (greater than/equal to 2 to less than 8 cm) ANATOMY SURVEY: Observed Structures Cerebellum: Yes; 2.0 cm, 20 weeks 5 days Cisterna magna: Yes; 2.6 mm Nuchal fold: Yes; 5.2 mm Lateral ventricle: Yes; 5.6 mm CSP: Yes Midline falx: Yes Choroid plexus: Yes Spine: Yes Stomach: Yes Abdominal cord insert: Yes Urinary bladder: Yes Kidneys: Yes Diaphragm: Yes Nose/lips: Yes Orbital view: Yes Profile: Yes Upper extremities: Yes Lower extremities: Yes Hands: Yes Feet: Yes 4-chamber heart: Yes LVOT: Yes RVOT: Yes 3VV: Yes 3VTV: Yes BIOMETRY BPD: 4.7 cm, 20 weeks 2 days, 38% HC: 17.3 cm, 19 weeks 6 days, 14% AC: 15.7 cm, 20 weeks 6 days, 53% FL: 3.1 cm, 19 weeks 4 days, 11% FL/AC: 19.58% HC/AC ratio: 1.10 heart rate: 141 bpm age by this ultrasound: 20 weeks 1 day REHAN by this ultrasound: 07/23/2025 Estimated weight: 337.98 grams (0 pounds 12 ounces) Percentile by REHAN: 26% IMPRESSION: 1) Normal anatomic survey. Renal pelvis measurements are considered within normal limits. 2) Multiple small placental lakes are present, some of which are adjacent to the placental cord insertion. Follow-up at 28 weeks is recommended. 3) Concordance of clinical and sonographic dating. TONY JESUS M.D. Diagnostic Radiologist [email or web address] Transcribed: 11:[address]/Dictated by: Tony Jesus MD @ 03/06/2025 11:01:00 AM (Electronically Signed)
== END 2025-03-06 08:04 | disposition home or self-care (01) ==
LOC: US 08:03
PROVIDERS: PCP Nurse Practitioner Family; Visit Provider Advanced Practice Midwife
DX: Z34.92 Encounter for supervision of normal pregnancy, unspecified, second trimester (principal); Z3A.20 20 weeks gestation of pregnancy
CPT/HCPCS: 76805

== ENCOUNTER 2025-03-18 10:35 | Outpatient (CLI) | payer BC, SELFPAY | END 2025-03-18 10:36 | disposition home or self-care (01) | LOC: US 10:35 | PROVIDERS: PCP Nurse Practitioner Family; Visit Provider Advanced Practice Midwife | DX: O43.102 Malformation of placenta, unspecified, second trimester (principal); Z3A.22 22 weeks gestation of pregnancy | CPT/HCPCS: 76811; 76817 ==

== ENCOUNTER 2025-03-25 22:01 | Outpatient (CLI) | payer BC, SELFPAY ==
[2025-03-25 22:19] LABS: Appearance Urine Clear (Clear)
[2025-03-25 22:27] LABS: Amnisure Rom* Negative
[2025-03-25 22:29] LABS: Trichomonas No Trichomonas Seen (None Seen)
[2025-03-25 22:31] VITALS: BP 104/61; PULSE 90
[2025-03-25 23:24] VITALS: PULSE 81; O2SAT 100
--- NOTE | 2025-03-26 00:48 | PC.OBNST ---
NST Note NST Note Start: 03/25/25 22:02 Freq: ONCE Status: Active Protocol: Document 03/26/25 00:39 HCR (Rec: 03/26/25 00:48 HCR [id number]) NST Note 2 Para (# of births) 1 EDC 07/20/25 Gestational Age In 23 Weeks & 3 Days Weeks & Days Patient Presented Leaking fluid with Complaint(s) of Reactive No Appropriate for Yes Gestational Age LUCIANO Schwab RN Date 03/26/25 Reactive No Appropriate for Yes Gestational Age LUCIANO Magaña CNM Date 03/26/25 OB NST charge Yes Complete NST Note Yes via Write Note The provider's electronic signature indicates the NST is reactive/appropriate for gestational age. *Note to provider: If an addendum is required, open the patient's chart and click on the note under the Nurse/Allied Health tab.
== END 2025-03-26 00:40 | disposition home or self-care (01) ==
LOC: OB OUT 22:01 → OB 22:03
PROVIDERS: PCP Nurse Practitioner Family; Visit Provider Midwife
DX: O47.02 False labor before 37 completed weeks of gestation, second trimester (principal); Z3A.23 23 weeks gestation of pregnancy
CPT/HCPCS: 59025; 81001; 81003; 84112; 87086; 87210; G0463

== ENCOUNTER 2025-04-08 07:35 | Outpatient (CLI) | payer BC, SELFPAY | END 2025-04-08 07:36 | disposition home or self-care (01) | LOC: US 07:35 | PROVIDERS: PCP Nurse Practitioner Family; Visit Provider Advanced Practice Midwife | DX: O34.592 Maternal care for other abnormalities of gravid uterus, second trimester (principal); Z3A.25 25 weeks gestation of pregnancy | CPT/HCPCS: 76816; 76817 ==

== ENCOUNTER 2025-05-01 09:35 | Outpatient (CLI) | payer BC, SELFPAY | END 2025-05-01 09:36 | disposition home or self-care (01) | LOC: NFLDREF 05-04 12:34 | PROVIDERS: PCP Nurse Practitioner Family; Referring Provider Nurse Practitioner Family; Visit Provider Advanced Practice Midwife | DX: Z34.93 Encounter for supervision of normal pregnancy, unspecified, third trimester (principal) | CPT/HCPCS: 86592 ==

== ENCOUNTER 2025-05-24 22:17 | Outpatient (CLI) | payer BC, SELFPAY ==
[2025-05-24 22:26] VITALS: BP 133/75; PULSE 98
[2025-05-24 22:27] VITALS: PULSE 101; O2SAT 100
[2025-05-24 22:35] VITALS: RESP 16; TEMP 36.6
--- NOTE | 2025-05-24 23:22 | CRLHL7_ITS ---
For Patients: As a result of the Cures Act, medical imaging exams and procedure reports are released immediately into your electronic medical record. You may view this report before your referring provider. If you have questions, please contact your health care provider. INDICATION: Uterine contractions with a thin lower uterine segment TECHNIQUE: Ultrasound OB pelvis transabdominal. Real-time burgos-scale imaging of the fetus was performed. Color and Duplex Doppler images were obtained. COMPARISON: 04/08/2025 FINDINGS: Sonographic imaging demonstrates a single intrauterine gestation. Biometric measurements were not obtained. The anterior myometrial thickness measures 7 mm. heart rate: 131 bpm Orientation: Breech Placenta: Anterior without evidence of placenta previa or abruption on submitted images Amniotic fluid: Subjectively normal with single deepest pocket (SDP) 5.2 cm Cervix: 1.9 cm in length with slight funneling of the internal cervical os. IMPRESSION: 1. Single viable intrauterine in breech presentation. 2. The cervix measures 1.9 cm in length with slight funneling of the internal cervical os. Dictated by Shamir Pimentel MD @ 05/25/2025 12:46:46 AM Dictated by: Shamir Pimentel MD @ 05/25/2025 00:47:03 (Electronically Signed)
--- NOTE | 2025-05-25 01:19 | PC.OBNST ---
NST Note NST Note Start: 05/24/25 22:20 Freq: ONCE Status: Discharge Protocol: Document 05/25/25 01:18 RRP (Rec: 05/25/25 01:19 RRP [id number]) NST Note 2 Para (# of births) 1 EDC 07/20/25 Gestational Age In 32 Weeks & 0 Days Weeks & Days Patient Presented Contractions/cramping with Complaint(s) of Reactive Yes Appropriate for Yes Gestational Age LUCIANO Lubin RN Date 05/25/25 Reactive Yes Appropriate for Yes Gestational Age LUCIANO Hoskins Date 05/25/25 OB NST charge Yes Complete NST Note Yes via Write Note The provider's electronic signature indicates the NST is reactive/appropriate for gestational age. *Note to provider: If an addendum is required, open the patient's chart and click on the note under the Nurse/Allied Health tab.
== END 2025-05-25 01:07 | disposition home or self-care (01) ==
LOC: OB OUT 22:17 → OB 22:18
PROVIDERS: PCP Nurse Practitioner Family; Visit Provider Advanced Practice Midwife
DX: O47.03 False labor before 37 completed weeks of gestation, third trimester (principal); Z3A.32 32 weeks gestation of pregnancy
CPT/HCPCS: 59025; 76815; 76817; G0463

== ENCOUNTER 2025-06-03 07:39 | Outpatient (CLI) | payer BC, SELFPAY | END 2025-06-03 07:40 | disposition home or self-care (01) | LOC: US 07:39 | PROVIDERS: PCP Nurse Practitioner Family; Visit Provider Midwife | DX: O34.593 Maternal care for other abnormalities of gravid uterus, third trimester (principal); Z3A.33 33 weeks gestation of pregnancy | CPT/HCPCS: 76816 ==

== ENCOUNTER 2025-06-05 11:47 | Outpatient (CLI) | payer BC, SELFPAY ==
--- NOTE | 2025-06-05 11:48 | CRLHL7_ITS ---
For Patients: As a result of the Century Cures Act, medical imaging exams and procedure reports are released immediately into your electronic medical record. You may view this report before your referring provider. If you have questions, please contact your health care provider. Indication: labor Technique: Sonography of the gravid uterus was performed. The study is limited to only that which is discussed below. Comparison: June 03 2025 Findings: There is a single live intrauterine gestation. Position is transverse head maternal left during the time course of this exam The single deepest pocket is 6.7 centimeters. The placenta is anterior and there is no previa. heart rate is 147 beats per minute. The cervical length is 3 centimeters. The os is closed. There is mild funneling of the membranes inferiorly but they do not enter into an open os. There is also thinning of the anterior wall of the lower uterine segment which minimally narrows 1-2 millimeter in Impression: 1. Single live intrauterine gestation that is in transverse position, head maternal left. Heart rate is 147 beats per minute. 2. Placenta anterior. No previa. 3. Single deepest pocket 6.7 centimeters. 4. The cervical length is 3 centimeters. The os is closed. There is mild funneling morphology the membranes in the lower uterine segment that they do not enter into an open os. 5. There is thinning of the anterior wall of the lower uterine segment in the 1-2 millimeter range Dictated by Joe Palmer MD @ 06/05/2025 1:08:13 PM (Electronically Signed)
[2025-06-05 11:51] VITALS: PULSE 100; O2SAT 100
[2025-06-05 11:55] VITALS: RESP 16; TEMP 36.7
[2025-06-05 11:56] VITALS: BP 115/62; PULSE 106; PULSE 91; O2SAT 100
[2025-06-05 12:01] VITALS: PULSE 101; O2SAT 100
[2025-06-05] MEDS: BETAMETHASONE SOD PHOS/ACETATE 6 MG/ML ML 12 MG IM (12:45)
[2025-06-05 13:01] LABS: Fetal Fibronectin* Negative (Negative)
[2025-06-05 13:19] LABS: Appearance Urine Clear (Clear)
--- NOTE | 2025-06-05 13:22 | PC.OBNST ---
NST Note NST Note Start: 06/05/25 11:49 Freq: ONCE Status: Active Protocol: Document 06/05/25 13:19 NÉSTOR (Rec: 06/05/25 13:21 NÉSTOR [id number]) NST Note 2 Para (# of births) 1 EDC 07/20/25 Gestational Age In 33 Weeks & 4 Days Weeks & Days Patient Presented Contractions/cramping,Other with Complaint(s) of Other Complaints Pt. sent over from [facility] due to Pt. having reg UC's yesterday and some today at 33 weeks with a known thin uterine wall and shortened cervix. EFM monitoring, Betamethasone, and US obtained. Reactive Yes Appropriate for Yes Gestational Age LUCIANO Melendez Date 06/05/25 Reactive Yes Appropriate for Yes Gestational Age LUCIANO Bhatia Date 06/05/25 OB NST charge Yes Complete NST Note Yes via Write Note The provider's electronic signature indicates the NST is reactive/appropriate for gestational age. *Note to provider: If an addendum is required, open the patient's chart and click on the note under the Nurse/Allied Health tab.
--- NOTE | 2025-06-05 14:08 | PM.OBLDTN ---
OB - Triage/Final Diagnosis Visit Information Narrative: Celine is a 20yo at 33w4d GA who was transferred to triage from the clinic. She was seen by Dr. Sun today, where she was reporting regular and somewhat painful contractions. is complicated by history of and very thin lower uterine segment (1-2mm) where TOLAC was contraindicated per MFM assessment, planning repeat at 37w0d GA (sooner with concerns). Patient notes she had intercourse on Sunday evening. All day , she had increased cramping and pain. She notes this was different than her baseline Marcial Haywood contractions, where she overall did not feel very well. Today, she notes that these are much less frequent. She notes that it is now only happening a handful of times per day, rated as 2/10 in severity. Denies vaginal bleeding or leaking of fluid. Endorses active movement. Denies any abnormal vaginal discharge, vulvovaginal itching or burning. No urinary urgency/frequency, dysuria. heart rate was monitored continuously and was entirely reactive/reassuring throughout. Some uterine irritability was noted, but only rare contractions were seen on toco. FFN was obtained and sent, found to be negative. Cervical exam was performed, station is high and cervix is fingertip at the external os. UA/UC sent, returned normal aside from trace blood. Repeat ultrasound was performed, where the lower uterine segment was noted to be unchanged at 1-2mm in the thinnest portion. Importantly, there is no apparent defect of the lower uterine segment itself. This is consistent with her last M US on 06/03. Cervical length was 3 cm, os closed with slight funneling at the lowering uterine segment. Anterior placenta, no previa. MVP 6.7 cm. Explained my evaluation is reassuring at present. She was recommended to receive betamethasone by Dr. Sun which I agree is very reasonable, dose #1 given at 1245. Plan repeat tomorrow in Ob triage. Given her cervix is closed, no change in ultrasound appearance, reassuring maternal/ condition I do feel she is a candidate for dismissal to home. Recommend very low threshold to return to care, particularly in the setting of regular/painful contractions, any severe abdominal pain, nausea/vomiting, dizziness/lightheadedness, vaginal bleeding, leaking of fluid, decreased movement. Recommend pelvic rest, as I suspect this may have been the etiology behind her increased cramping. Patient expressed understanding and is agreeable to plan. Recommend she call the clinic to get a routine OB visit next week for close interval follow-up. BMZ #2 tomorrow on [facility]. Evaluation Laboratory results: Laboratory Tests 06/05/25 06/05/25 Range/Units 13:02 12:18 Urine Color Yellow (Yellow) Urine Appearance Clear (Clear) Urine pH 5.5 (5.0-8.5) Ur Specific [place] <= 1.005 (1.000-1.030) Urine Protein Negative (Negative) Urine Glucose (UA) Negative (Negative) Urine Ketones Negative (Negative) Urine Blood Trace-intact A (Negative) Urine Nitrite Negative (Negative) Urine Bilirubin Negative (Negative) Urine Urobilinogen 0.2 (0.2-1.0) Ur Leukocyte Esterase Negative (Negative) Urine RBC 0-2 (0-2) Urine WBC 0-2 (0-5) Ur Squamous Epith Cells None (None-Few) Urine Bacteria None (None) Fibronectin Negative (Negative) Vital signs: Vital Signs - 24 hr 06/05/25 11:51 06/05/25 11:55 06/05/25 11:56 Temperature 98.1 F Pulse Rate 91 Respiratory Rate 16 Blood Pressure 115/62 Pulse Oximetry 100 100 06/05/25 12:01 Temperature Pulse Rate Respiratory Rate Blood Pressure Pulse Oximetry 100
== END 2025-06-05 14:10 | disposition home or self-care (01) ==
LOC: OB OUT 11:47 → OB 11:48
PROVIDERS: PCP Nurse Practitioner Family; Visit Provider Obstetrics & Gynecology
DX: O47.03 False labor before 37 completed weeks of gestation, third trimester (principal); Z3A.33 33 weeks gestation of pregnancy
CPT/HCPCS: 59025; 76815; 76817; 81001; 81003; 84112; G0463; J0702

== ENCOUNTER 2025-06-06 13:00 | Outpatient (CLI) | payer BC, SELFPAY ==
[2025-06-06 13:12] VITALS: TEMP 36.5
[2025-06-06 13:13] VITALS: PULSE 102; RESP 16; O2SAT 100
[2025-06-06 13:16] VITALS: BP 123/69
[2025-06-06] MEDS: BETAMETHASONE SOD PHOS/ACETATE 6 MG/ML ML 12 MG IM (13:45)
[2025-06-06 14:04] LABS: Fetal Fibronectin* Negative (Negative)
[2025-06-06 14:35] VITALS: PULSE 103; O2SAT 100
[2025-06-06 14:51] LABS: Bacterial Vaginosis* Negative (Negative); Candida glab/krus NOT DETECTED (No Detected)
--- NOTE | 2025-06-06 14:59 | CRLHL7_ITS ---
For Patients: As a result of the Cures Act, medical imaging exams and procedure reports are released immediately into your electronic medical record. You may view this report before your referring provider. If you have questions, please contact your health care provider. INDICATION: contractions, Uterine dehiscence COMPARISON: OB ultrasound on June 05, 2025. TECHNIQUE: Limited obstetric ultrasound, transabdominal and transvaginal approach, utilizing grayscale and color Doppler as needed. Biophysical profile examination was performed. FINDINGS: Sonographic imaging demonstrates a single living intrauterine gestation. The fetus has a regular cardiac rate of 147 beats per minute. The fetus has a vertex orientation. The placenta lies anteriorly/right wall without evidence of placenta previa or abruption. Amniotic fluid volume appears normal at 14 centimeters. The cervix is closed and measures 2.1 cm in length. The free-floating umbilical cord is seen near the cervical os. Similar-appearing thinning of the anterior wall of the lower uterine segment in the 1-3 millimeter range. Biophysical profile exam: Body movements: 2/2 tone: 2/2 Respiratory activity: 2/2 Amniotic Fluid: 2/2 Total score: 8/8 IMPRESSION: 1. Single living intrauterine gestation in vertex position with heart rate 147 beats per minute. 2. Normal biophysical profile score of 8/8. 3. No sonographic evidence of placenta previa or abruption. 4. The cervix is closed measuring 2.1 centimeters in length. 5. Redemonstration of thinning of the anterior wall of the lower uterine segment in the 1-3 millimeter range. Dictated by Navid Crandall MD @ 06/06/2025 5:06:05 PM (Electronically Signed)
--- NOTE | 2025-06-06 17:51 | PC.OBNST ---
NST Note NST Note Start: 06/06/25 13:40 Freq: ONCE Status: Active Protocol: Document 06/06/25 17:50 BAW (Rec: 06/06/25 17:51 BAW No Response) NST Note 2 Para (# of births) 1 EDC 07/20/25 Gestational Age In 33 Weeks & 5 Days Weeks & Days Patient Presented Contractions/cramping with Complaint(s) of Reactive Yes Appropriate for Yes Gestational Age LUCIANO Kang RNC Date 06/06/25 Reactive Yes Appropriate for Yes Gestational Age LUCIANO Calles RN Date 06/06/25 OB NST charge Yes Complete NST Note Yes via Write Note The provider's electronic signature indicates the NST is reactive/appropriate for gestational age. *Note to provider: If an addendum is required, open the patient's chart and click on the note under the Nurse/Allied Health tab.
== END 2025-06-06 17:15 | disposition home or self-care (01) ==
LOC: OB OUT 13:35 → OB 13:35
PROVIDERS: PCP Nurse Practitioner Family; Visit Provider Obstetrics & Gynecology
DX: O47.03 False labor before 37 completed weeks of gestation, third trimester (principal); Z3A.33 33 weeks gestation of pregnancy
CPT/HCPCS: 59025; 76817; 76819; 81513; 84112; 87481; 87661; G0463; J0702

== ENCOUNTER 2025-06-23 09:45 | Outpatient (CLI) | payer BC, SELFPAY ==
[2025-06-24 12:39] LABS: Strep B DNA Probe Negative (Negative)
[2025-06-24 13:10] LABS: Strep B Susceptibility Needed? No
== END 2025-06-23 09:46 | disposition home or self-care (01) ==
LOC: NFLDREF 09:45
PROVIDERS: PCP Nurse Practitioner Family; Visit Provider Obstetrics & Gynecology
DX: Z34.93 Encounter for supervision of normal pregnancy, unspecified, third trimester (principal)
CPT/HCPCS: 87081; 87653

== ENCOUNTER 2025-06-29 05:41 | Inpatient (IN) | payer BC, SELFPAY ==
[2025-06-29] VITALS (21 sets, daily range): BP systolic 105–133; BP diastolic 65–86; PULSE 76–109; RESP 16–18; TEMP 36.2–36.7; O2SAT 94–100; BMI 24.2
[2025-06-29] MEDS: LACTATED RINGERS 1000 ML 1,000 ML 1200 ML IV ×2 (06:13→07:05)
[2025-06-29 06:21] LABS: Hematocrit* 36.0 % (33.0-51.0); Hemoglobin* 11.8 gm/dL (12.0-16.0); Immature Granulocytes Abs Auto 0.03 K/uL (0.00-0.30); Immature Granulocytes Pct Auto 0.4 %; Lymphocytes Absolute Auto 2.06 K/uL (0.90-2.90); Mean Corpuscular HGB Conc 33 gm/dL (32-36); Mean Corpuscular Hemoglobin 30 pg (26-34); Mean Corpuscular Volume 92 fL (80-100); RDW Coefficient of Variation % 12.8 % (11.5-15.5); Red Blood Count* 3.93 m/uL (4.00-5.20); White Blood Count* 7.51 K/uL (4.50-11.00)
[2025-06-29 06:36] LABS: Slide Review Reflex No
--- NOTE | 2025-06-29 08:33 | P.ANES_ITS ---
Anesthesia Charges Start Date/Time Anesthesia Start Date: 06/29/25 Anesthesia Start Time: 07:28 Stop Date/Time Anesthesia Stop Date: 06/29/25 Anesthesia Stop Time: 08:54 Coding CPT Codes CPT Codes: ANESTH CS DELIVERY - 36757 ([id number]) P2 - PATIENT W/MILD SYST DISEASE, QK - RESPIRATORY THERAPY INSTRUCTOR 2-4 CNCRNT ANES PROC, QX - MONOTYPIST SVC W/ MD MED DIRECTION
--- NOTE | 2025-06-29 08:33 | W.ANESCHARGE ---
Anesthesia Charges Start Date/Time Anesthesia Start Date: 06/29/25 Anesthesia Start Time: 07:28 Stop Date/Time Anesthesia Stop Date: 06/29/25 Anesthesia Stop Time: 08:54 Coding CPT Codes CPT Codes: ANESTH CS DELIVERY - 14142 ([id number]) P2 - PATIENT W/MILD SYST DISEASE, QK - HAIR SALON MANAGER 2-4 CNCRNT ANES PROC, QX - SEWING MACHINES SALESPERSON SVC W/ MD MED DIRECTION
--- NOTE | 2025-06-29 08:34 | W.PM.NB ---
Nerve Block Nerve Block Time Seen by Provider: 08:46 Date Seen: 06/29/25 Type of block requested by surgeon for post-operative analgesia: TAP Side: bilateral Time out performed: Yes Verification of patient name: Yes Verification of date of : Yes Site marking: site marked Name of person performing procedure: Mahin Ortiz Continuous monitoring Was continuous monitoring of O2 sat, B/P, monitor and storage bin tender, recorded every 15 minutes?: Yes Procedure Checklist: sterile prep, needles and gloves Ultrasound guided. Images saved: Yes Medications given in 5ml increments after negative aspiration: Marcaine %: 0.25 mL: 30 Needle gauge: 20 and Exparel mL: 10 Needle gauge: 20 Patient tolerated procedure well: Yes Additional comments: Injected in 5 mL increments after negative aspiration Block Charges Block Charge (with Pro Fee): TAP Bilateral Use of Ultrasound Machine for Block: Yes- US Guidance/pain block
--- NOTE | 2025-06-29 08:42 | P.OBPRC_ITS ---
Procedure Date of procedure: 06/29/25 Pre-op diagnosis: 1. 37 0/7 weeks gestation. 2. History of prior section. 3. Closely spaced pregnancies (<1 year). 4. Extremely thin lower uterine segment (1-2 mm). Post-op diagnosis: same Procedure Done: Global Will [facility] bill your pro fee for this procedure?: Yes Blood Loss Measurement Type: QBL (428 mL) Bakri Used: No IV fluids (mL): 700 Urine Output (mL): 200 Urine Output Comment: clear Surgeon: Ligia Sun MD Advertising Space Clerk: CEDRIC Hatch Anesthesia Type: Spinal and TAP Block Findings: Moderate postsurgical adhesions involving fascia, rectus muscles, and peritoneum. Adhesions involving vesicouterine peritoneum and lower uterine segment. Very thin lower uterine segment, approximately 1-2 mm. Live-born male, cephalic presentation, occiput posterior position, weight pending, Apgars 8, 5 and 8 at 1, 5 and 10 minutes respectively. Normal fallopian tubes and ovaries bilaterally. Procedure Name: Repeat low transverse section. Procedure Description: After obtaining informed consent, the patient was taken to the operating room where spinal anesthesia was obtained and found to be adequate. She was prepared and draped in the normal sterile fashion in the dorsal supine position with a leftward tilt. A Pfannenstiel skin incision was made with a scalpel along the line of the patient's previous Pfannenstiel scar. This incision was carried down to the underlying layer of fascia with the Bovie. The fascia was incised in the midline and the incision extended laterally. The superior and inferior aspects of the fascial incision were grasped with Zurdo clamps, elevated and the underlying rectus muscles dissected off sharply and with electrocautery. This dissection took approximately 10 minutes given the dense adhesions. The rectus muscles were then in the midline. The adhesions between the bladder and lower uterine segment were taken down sharply with Metzenbaum scissors. The Rich O retractor was then placed into the incision. The thin lower uterine segment was then incised in a transverse fashion with the scalpel. Upon entry into the uterus, clear amniotic fluid was noted. The uterine incision was extended laterally with blunt finger fractionation. The 's head was delivered atraumatically, followed by the remainder of the 's body. The nose and mouth were suctioned with the bulb suction. The cord was doubly clamped and cut after 30 second delay, and the infant was handed off the field for evaluation. The placenta was delivered spontaneously with umbilical cord traction and fundal massage. The uterus was cleared of all clots and debris. The uterine incision was reapproximated in a running locking fashion with a 0 chromic suture, taking care not to entrap the endometrium within the closure. A 2nd layer of the same suture was used to imbricate in horizontal fashion. The gutters were inspected and clots removed. All instruments and retractors were removed. The anterior peritoneum was reapproximated in a running fashion with a 3-0 Vicryl suture. The subfascial tissues were carefully inspected and hemostasis assured. The fascia was reapproximated in a running fashion with a looped 0 Maxon suture. The subcutaneous tissues were copiously irrigated. Hemostasis was assured. The skin was closed in a subcuticular fashion with 4-0 Vicryl. Surgical glue and dressing were applied. A TAP block was performed by the COMPLIANCE ASSISTANT. The patient tolerated the procedure well. Sponge, lap, needle, and instrument counts were reported as correct x2. The patient was taken to the recovery room, awake, and in stable condition. She did receive 2 grams of IV Ancef preoperatively and 30 mg IV Toradol at the conclusion of the procedure. Complications: None. Pathology: none sent Surgery Debrief Performed: Yes Condition: stable Disposition: floor
--- NOTE | 2025-06-29 09:04 | P.ANES_ITS ---
Anesthesia Charges Start Date/Time Anesthesia Start Date: 06/29/25 Anesthesia Start Time: 07:28 Stop Date/Time Anesthesia Stop Date: 06/29/25 Anesthesia Stop Time: 08:54 Coding CPT Codes CPT Codes: ANESTH CS DELIVERY - 25716 ([id number]) P2 - PATIENT W/MILD SYST DISEASE, QK - SHERIFFS DETECTIVE 2-4 CNCRNT ANES PROC, QX - MUSIC EXECUTIVE SVC W/ MD MED DIRECTION
--- NOTE | 2025-06-29 09:04 | W.ANESCHARGE ---
Anesthesia Charges Start Date/Time Anesthesia Start Date: 06/29/25 Anesthesia Start Time: 07:28 Stop Date/Time Anesthesia Stop Date: 06/29/25 Anesthesia Stop Time: 08:54 Coding CPT Codes CPT Codes: ANESTH CS DELIVERY - 34545 ([id number]) P2 - PATIENT W/MILD SYST DISEASE, QK - PAPER PRODUCTION ENGINEER 2-4 CNCRNT ANES PROC, QX - TILE CONDUIT LAYER SVC W/ MD MED DIRECTION
[2025-06-29] MEDS: ACETAMINOPHEN 500 MG TABLET 1000 MG PO ×2 (12:29→18:52)
[2025-06-29] MEDS: SIMETHICONE 80 MG TAB.CHEW PO (17:55)
--- NOTE | 2025-06-29 18:38 | XR_ITS ---
Patient: GABRIEL ESCAMILLA Facility:?[facility] Patient ID:?[id number] Site Patient ID:?[id number]. Site :?[id number] Study:?XRay-Chest 1V-06/29/2025 6:56:55 PM Ordering Physician:Lazaro Godinez Final Report: Indication: Chest pain. Technique: Chest 1 view. Comparison: 04/07/2024. Findings/Impression: Cardiovascular and mediastinum: Heart size is normal. Unremarkable mediastinum. Lungs and pleural space: Lungs are clear. No sign of infiltrate or mass. No sign of pleural effusion. No pneumothorax. Bones and soft tissues: No acute findings. Dictated by Antelmo Khan MD @ 06/29/2025 7:11:33 PM (Electronic Signature)
[2025-06-30] MEDS: ACETAMINOPHEN 500 MG TABLET 1000 MG PO ×3 (00:32→12:44)
[2025-06-30 00:34] VITALS: BP 100/64; PULSE 79; RESP 18; TEMP 36.6; O2SAT 97
[2025-06-30 04:26] VITALS: BP 101/66; PULSE 86; RESP 18; TEMP 36.5; O2SAT 98
[2025-06-30 06:29] LABS: Hemoglobin* 11.0 gm/dL (12.0-16.0)
[2025-06-30] MEDS: SIMETHICONE 80 MG TAB.CHEW PO (08:29)
[2025-06-30] MEDS: DOCUSATE SODIUM 100 MG CAPSULE PO (08:29)
[2025-06-30 08:35] VITALS: BP 105/70; PULSE 88; RESP 18; TEMP 36.3; O2SAT 100
--- NOTE | 2025-06-30 09:02 | P.OBPN_ITS ---
OB - PN:Subj Subjective Date Seen: 06/30/25 Narrative: Pamella is a 20 y.o. G 2 P 1 who was admitted to [facility] for repeat c/s with closely spaced and extremely thin lower uterine segment. ?She had a section that was uncomplicated. The was transferred to the NICU after delivery for respiratory distress. The patient feels well. ?The pain is well controlled with current medications. ?She has no new complaints. ?She plans to breastfeed but is pumping until she is able to be with baby in the NICU. the patient has done well.? Vitals have been stable.? She has remained afebrile.? Has a good appetite, is tolerating a general diet. ?She is voiding without difficulty.? She is passing gas and has not had a bowel movement.? She is ambulating and denies any dizziness.? Has small amount of rubra lochia. Problems: none OB - PN: Obj Exam Physical Exam: Vital signs: Temp Pulse Resp BP Pulse Ox O2 Del Method 97.7 F 86 18 101/66 98 Room Air 06/30/25 04:26 06/30/25 04:26 06/30/25 04:26 06/30/25 04:26 06/30/25 04:26 06/30/25 04:26 Narrative: GENERAL APPEARANCE:? normal affect, alert, no distress MOOD:? appropriate CHEST:? clear to auscultation HEART:? regular rate and rhythm ABDOMEN:? soft, non-tender the uterine fundus is At Umbilicus, Midline and is appropriate for the stage of recovery. EXTREMITIES:? normal and no edema INCISION: Healing well, no surrounding erythema, abnormal induration or di scharge; Dressing removed OB - PN: Obj Data Labs Labs: Laboratory Results - last 24 hr 06/30/25 06:12 Hgb 11.0 L OB - PN: A/P Delivery Assessment and Plan (1) care and examination immediately after delivery: Status: Acute (2) Status post section: Status: Acute Plan day: 1 Plan: routine care Comments: Plan Routine post-operative care , may see if needed? Hgb 11.0. ? Encouraged pain control today. Has not taken oxycodone out of fear. Reassurance provided if she needs additional pain management that it is available. Considering d/c this tomorrow morning depending on day as baby is in the NICU. She had been uncertain about d/c today and was encouraged to stay for additional pain control.
[2025-06-30] MEDS: SODIUM CHLORIDE 0.9 % (FLUSH) 10 ML SYRINGE IVF (09:10)
--- NOTE | 2025-06-30 12:55 | P.DS_ITS ---
DS: Providers Provider Date Seen: 06/30/25 Date of admission: 06/29/25 05:41 Primary care physician: Swati Sears APRN, MARKET RESEARCH SENIOR PROJECT MANAGER Admitting Clinician: Ligia Sun MD Attending Physician on discharge: Catrina Patterson APRN, GREG DS: Diagnosis Discharge Diagnosis (1) Lactating mother: Status: Acute (2) Status post section: Status: Acute (3) care and examination immediately after delivery: Status: Acute Exam Const: Vital Signs, click to edit/add: Vital Signs - 24 hr 06/29/25 14:42 06/29/25 17:48 06/29/25 20:45 Temperature 98.1 F 97.4 F L 97.5 F L Pulse Rate [Pulse Oximeter] 88 84 76 Respiratory Rate 18 16 18 Blood Pressure [Ri ght Arm] 105/65 116/70 117/79 Pulse Oximetry 97 100 98 Oxygen Delivery Me thod Room Air Room Air Room Air 06/30/25 00:34 06/30/25 04:26 06/30/25 08:35 Temperature 97.8 F 97.7 F 97.4 F L Pulse Rate [Pulse Oximeter] 79 86 88 Respiratory Rate 18 18 18 Blood Pressure [Ri ght Arm] 100/64 101/66 105/70 Pulse Oximetry 97 98 100 Oxygen Delivery Me thod Room Air Room Air Room Air OB - DS: Summary Hospital Course Hospital Course: Please refer to rounding document for hospital course. Plan Patient now requesting discharge to be with baby in NICU. Pt is stable and pain has been better controlled this morning. Return in 2 and 6 weeks. Peripartum Data delivery method: Repeat Section Procedures: Procedures Operation Date: 06/29/25 07:15 Actual Procedure Side Surgeon p Repeat Section Ligia Sun MD complications: none Gender: Male Infant Discharge Plan: Home Status at Discharge Functional status at discharge: independent ambulation Overall status at discharge: patient is progressing back to baseline Time Spent with Patient Time attestation: Total time spent providing and/or coordinating discharge services: Time spent: Less than 30 minutes Discharge Plan Discharge Disposition: Home, Self-Care Date of Admission: 06/29/25 05:41 Attending Provider on Discharge: Catrina Patterson Primary Care Provider: Swati Sears Condition: Stable Anticipated Discharge Date/Time: 06/30/25 12:00 Discharge Medications: New acetaminophen 500 mg Tablet 1,000 mg PO Q6H PRN (Reason: Pain) Qty: 0 0RF docusate sodium 100 mg Capsule 100 mg PO DAILY Qty: 60 0RF ibuprofen 600 mg Tablet 600 mg PO Q6H PRN (Reason: Pain) Qty: 60 0RF oxycodone 5 mg Tablet 5 - 10 mg PO Q4H PRN (Reason: Pain) Qty: 15 0RF Continued Classic 28 mg iron- 800 mcg tablet 2 tab PO DAILY folic acid 1 mg tablet 4 mg PO QDAY Qty: 120 12RF Discontinued aspirin 81 mg tablet,chewable 81 mg PO QDAY progesterone micronized 200 mg capsule 200 mg vaginal QHS 21 Days Qty: 21 3RF Rx Instructions: insert vaginally at bedtime Discharge Orders: Discharge Order (Routine); Ordered 06/30/25 Ordered By: Catrina Patterson Patient Education: Bupivacaine Liposome (By injection), OB Over the Counter Medication Information, OB /Breast Feeding Additional Instructions: Discharge instructions were reviewed with the patient including signs and symptoms of infection and home going medications Lifting Restrictions: 20 pounds for 6 weeks No not submerge incision under water X 2 weeks? Nothing vaginally for 6 weeks: no tampons or intercourse Do not drive while taking narcotic pain medication(s) Off Work or School for 8 weeks 2-week visit: incision check, discuss infant feeding concerns, review control options and screen for anxiety/depression. 6-week visit for an annual exam. consultation services are available to all mothers and babies for the first year after delivery.? To make an appointment, please call [phone]. Activity Level: Activity as Tolerated Discharge Diet: Regular Follow Up Appointments: [facility] [Provider Group] Forms: Verit[employer] Info Instructions
--- NOTE | 2025-07-13 12:33 | PM.OBPNVD1 ---
OB - PN:Subj Subjective Date Seen: 06/29/25 Narrative: Patient with atypical chest pain after delivery. Orders for EKG and CXR. Results reviewed and normal. Pain resolved over time. OB - PN: Obj Exam Physical Exam: Vital signs: Temp Pulse Resp BP Pulse Ox O2 Del Method 97.4 F L 88 18 105/70 100 Room Air 06/30/25 08:35 06/30/25 08:35 06/30/25 08:35 06/30/25 08:35 06/30/25 08:35 06/30/25 08:35 OB - PN: A/P Delivery Assessment and Plan (1) Lactating mother: Status: Acute (2) Status post section: Status: Acute (3) care and examination immediately after delivery: Status: Acute
== END 2025-06-30 14:10 | disposition home or self-care (01) | DRG 540 ==
PROVIDERS: Admitting Provider Obstetrics & Gynecology; PCP Nurse Practitioner Family; Visit Provider Obstetrics & Gynecology
PROC: 10D00Z1 Extraction of Products of Conception, Low, Open Approach (ICD-10-PCS; CPT 59514; principal; 2025-06-29 07:15)
DX: O34.211 Maternal care for low transverse scar from previous cesarean delivery (principal); G89.18 Other acute postprocedural pain; R07.89 Other chest pain; Z3A.37 37 weeks gestation of pregnancy; Z37.0 Single live birth
CPT/HCPCS: 01961; 36415; 64488; 71045; 76942; 85018; 85025; 86592; 86850; 86900; 86901; 93005; A4314; A9270; J0665; J0666; J0690; J1100; J1885; J2371; J2405; J2590; J7120

== ENCOUNTER 2025-07-15 09:46 | Outpatient (CLI) | payer BC, SELFPAY | END 2025-07-15 09:47 | disposition home or self-care (01) | LOC: NFLDREF 09:47 | PROVIDERS: PCP Nurse Practitioner Family; Visit Provider Registered Nurse | DX: Z39.2 Encounter for routine postpartum follow-up (principal); Z98.891 History of uterine scar from previous surgery | CPT/HCPCS: 87086 ==